=== PATIENT | female | born 1950 | race Caucasian/White ===

== ENCOUNTER → 2017-11-27 13:53 | Outpatient (CLI) | payer OTHER, SELFPAY ==
--- NOTE | 2017-11-27 14:00 | DI.US.S_ITS ---
ULTRASOUND OF RIGHT BREAST: 11/27/2017 CLINICAL: Patient returns for additional imaging over a suspected mass in the right breast. Comparison is made to exams dated: 11/27/2017 mammogram, 05/29/2017 ultrasound, and 05/29/2017 mammogram - [facility]. Color flow ultrasound of the right breast was performed. Vazquez scale images of the real-time examination were reviewed. There is a benign 7 mm cyst with a smooth internal wall in the right breast at 7 o'clock posterior depth. This cyst is anechoic. This correlates with mammography findings. Color flow imaging demonstrates that there is no vascularity present. IMPRESSION: BENIGN There is no sonographic evidence of malignancy. The 7 mm cyst in the right breast is benign. Return to annual mammogram screening schedule is recommended. This exam was interpreted at Station ID: [id number]. Electronically Signed By: Skyler madrid/carroll:11/27/2017 15:30:40 letter sent: Normal Exam Ultrasound BI-RADS: 2 Benign
--- NOTE | 2017-11-27 14:00 | DI.MG.S_ITS ---
UNILATERAL RIGHT DIGITAL DIAGNOSTIC MAMMOGRAM 3D/2D SHORT-TERM FOLLOW-UP: 11/27/2017 CLINICAL: Patient returns for a 6 month follow up of the right breast. Comparison is made to exams dated: 05/29/2017 mammogram, 10/31/2016 mammogram, 05/21/2016 mammogram, and 05/13/2016 mammogram - [facility]. There are scattered fibroglandular elements in the right breast. There is a 1.2 cm oval low density mass with a circumscribed margin in the right breast at 7 o'clock posterior depth. No other significant masses or calcifications are seen in the breast. IMPRESSION: INCOMPLETE: NEEDS ADDITIONAL IMAGING EVALUATION The 1.2 cm oval low density mass in the right breast is indeterminate. An ultrasound is recommended. This exam was interpreted at Station ID: [id number]. NOTE: For mammograms, a report in lay terms will be sent to the patient. Approximately 15% of breast malignancies will not be visualized mammographically. In the management of a palpable breast mass, a negative mammogram must not discourage biopsy of a clinically suspicious lesion. Electronically Signed By: Skyler madrid/carroll:11/27/2017 15:29:43 ACR BI-RADS Category 0: Incomplete [id number]
== END ==
PROVIDERS: PCP Family Medicine; Visit Provider Family Medicine
DX: R92.8 Other abnormal and inconclusive findings on diagnostic imaging of breast (principal)
CPT/HCPCS: 76642; 77065; G0279

== ENCOUNTER → 2017-12-28 13:54 | Outpatient (CLI) | payer OTHER, SELFPAY | PROVIDERS: PCP Family Medicine; Visit Provider Physician Assistant | DX: R30.0 Dysuria (principal) | CPT/HCPCS: 87086 ==

== ENCOUNTER → 2018-04-08 12:50 | Outpatient (CLI) | payer OTHER, SELFPAY | PROVIDERS: PCP Family Medicine; Visit Provider Physician Assistant | DX: S61.239A Puncture wound without foreign body of unspecified finger without damage to nail, initial encounter (principal) | CPT/HCPCS: 87070; 87075; 87077; 87147; 87186; 87205 ==

== ENCOUNTER → 2018-07-18 09:14 | Outpatient (CLI) | payer OTHER, SELFPAY | PROVIDERS: PCP Family Medicine; Visit Provider Physician Assistant | DX: R30.0 Dysuria (principal) | CPT/HCPCS: 87077; 87086; 87186 ==

== ENCOUNTER → 2018-08-23 11:08 | Outpatient (CLI) | payer OTHER, SELFPAY | PROVIDERS: PCP Family Medicine; Visit Provider Physician Assistant | DX: N39.0 Urinary tract infection, site not specified (principal) | CPT/HCPCS: 87077; 87086; 87186 ==

== ENCOUNTER → 2018-09-18 15:09 | Outpatient (CLI) | payer OTHER, SELFPAY ==
--- NOTE | 2018-09-18 15:11 | DI.RAD.S_ITS ---
PROCEDURE: XR CERVICAL SPINE 2V OR 3V INDICATIONS: Left neck pain TECHNIQUE: 3 view(s) of the cervical spine were acquired. COMPARISON: None. FINDINGS: Bones: No fractures or dislocations to the T1 level. The lateral masses of C1 appear intact on the odontoid view. No suspicious bony lesions. There is a moderately severe degree of degenerative disc disease at C5-6 and C6-7. No subluxation is associated. Posterior projecting osteophytes at these 2 levels may produce significant spinal stenosis. Soft tissues: No prevertebral soft tissue swelling. IMPRESSION: No trauma found. Moderately severe C5-6 and C6-7 degenerative disc disease with potential for spinal stenosis at those 2 levels. Dictated by: Julio Muir M.D. on 09/18/2018 at 15:33 Approved by: Julio Muir M.D. on 09/18/2018 at 15:34
== END ==
PROVIDERS: PCP Family Medicine; Visit Provider Nurse Practitioner
DX: M50.322 Other cervical disc degeneration at C5-C6 level (principal); M79.601 Pain in right arm; R51 Headache
CPT/HCPCS: 72040

== ENCOUNTER → 2018-10-06 10:38 | Outpatient (CLI) | payer OTHER, SELFPAY ==
--- NOTE | 2018-10-06 10:43 | DI.US.S_ITS ---
PROCEDURE: US THYROID INDICATIONS: FOLLOW-UP NODULE TECHNIQUE: Real-time scanning was performed of the thyroid gland, with image documentation. COMPARISON: Located Within [facility], US, THYROID, 07/29/2017, 15:36. FINDINGS: The thyroid is diffusely heterogeneous, with very little normal-appearing thyroid tissue seen. Right: Thyroid lobe measures 3 x 1.4 x 1.9 cm. Left: Thyroid lobe measures 3.3 x 1.3 x 1.2 cm. Isthmus: 1 mm thick. Nodule number: 1 Location: Right mid thyroid Size: 1.3 x 0.8 x 1 cm, previously measuring 1.3 x 1.0 0.9 cm. Composition: Solid Echogenicity: Hyperechoic Shape: wider than tall. Margins: Smooth Echogenic foci: None Total points: 3 ACR TI-RADS category: 3, mildly suspicious. By published criteria, no followup is recommended for a nodule of this size. IMPRESSION: There is diffusely heterogeneous, with very little normal-appearing thyroid tissue seen. Within the mid right thyroid, there is a stable 1.3 cm nodule identified. Based on published criteria, no specific imaging followup is recommended. ACR TI-RADS definitions and recommendations: TI-RADS 1 (benign): 0 points. FNA not needed. TI-RADS 2 (not suspicious): 2 points. FNA not needed. TI-RADS 3 (mildly suspicious): 3 points. * FNA if 2.5 cm or larger, follow up if 1.5 cm or larger (at 1, 3, and 5 years). TI-RADS 4 (moderately suspicious): 4-6 points. * FNA if 1.5 cm or larger, follow up if 1 cm or larger (at 1, 2, 3, and 5 years). TI-RADS 5 (highly suspicious): 7 points or more. * FNA if 1 cm or larger, follow up if 0.5 cm or larger (every year for 5 years). Dictated by: Teofilo Rodriguez M.D. on 10/06/2018 at 11:03 Approved by: Teofilo Rodriguez M.D. on 10/06/2018 at 11:05
== END ==
PROVIDERS: PCP Family Medicine; Visit Provider Family Medicine
DX: E04.1 Nontoxic single thyroid nodule (principal); E03.9 Hypothyroidism, unspecified
CPT/HCPCS: 76536

== ENCOUNTER → 2018-11-23 12:31 | Outpatient (CLI) | payer OTHER, SELFPAY ==
[2018-11-23 12:41] LABS: RBC Urine None Seen (0-5/HPF)
[2018-11-23 13:07] LABS: Add Manual Diff / Slide Review NO; Basophils Absolute Auto 0 /uL (0-100); Basophils Percent Auto 0.6 % (0-2); Eosinophils Absolute Auto 100 /uL (0-450); Eosinophils Percent Auto 1.1 % (2-4); Hematocrit 42.5 % (36-46); Hemoglobin 14.3 g/dL (12.0-16.0); Lymphocytes Absolute Auto 1900 /uL (1100-4500); Lymphocytes Percent Auto 31.5 % (25-40); Mean Corpuscular HGB Conc 33.6 % (30-36); Mean Corpuscular Volume 89.2 fL (80-100); Monocytes Absolute Auto 300 /uL (0-900); Monocytes Percent Auto 4.6 % (3-14); Neutrophils Absolute Auto 3700 /uL (1500-7000); Neutrophils Percent Auto 62.2 % (50-75); Platelet Count 252 X10^3/uL (150-400); Red Blood Cell Count 4.76 X10^6/uL (4.0-5.2); Red Cell Distribution Width 13.8 % (11.6-14.8)
[2018-11-23 13:58] LABS: Appearance Urine UA CLEAR; Bilirubin Urine UA NEGATIVE (NEGATIVE); Color Urine UA YELLOW; Glucose Urine UA NEGATIVE (Negative); Ketones Urine UA NEGATIVE (NEGATIVE); Leukocyte Esterase Urine UA 2+ (NEGATIVE); Nitrite Urine UA NEGATIVE (Negative); Occult Blood Urine UA NEGATIVE (Negative); Protein Urine UA NEGATIVE (Negative); Urobilinogen Urine UA 0.2 E.U./dL (0.2)
[2018-11-23 14:05] LABS: Alanine Aminotransferase 24 IU/L (9-52); Albumin 4.5 g/dL (3.5-5.0); Albumin Globulin Ratio 1.8 (1.0-2.8); Alkaline Phosphatase 47 U/L (38-126); Aspartate Aminotransferase 24 IU/L (14-36); BUN Creatinine Ratio 21.4 (6-22); Bilirubin Total 0.7 mg/dL (0.2-1.3); Blood Urea Nitrogen 15 mg/dL (7-17); Calcium 10.4 mg/dL (8.4-10.2); Carbon Dioxide 30 mmol/L (22-32); Chloride 102 mmol/L (98-107); Cholesterol 241 mg/dL (140-199); Estimated Glomerular Filt Rate > 60.0 mL/min (>60); Globulin 2.5 g/dL (1.7-4.1); Glucose 111 mg/dL (80-110); HDL Cholesterol 86 mg/dL (40-60); HEMOLYSIS < 15 (0-50); LDL Cholesterol Calculated 132 mg/dL (<100); Potassium 3.8 mmol/L (3.4-5.1); Sodium 140 mmol/L (137-145); Triglycerides 114 mg/dL (35-150)
[2018-11-23 14:20] LABS: Amorphous Sediment Urine 1+; Bacteria Urine Moderate (10-30); Squamous Epithelial Cell Urine 0-1 /HPF (0-5/HPF); Transitional Epi Cells Urine 0-1/HPF (0-5/HPF); WBC Urine 1-5/HPF (0-5/HPF)
[2018-11-23 14:21] LABS: Culture Indicated Urine Specimen Cultured
[2018-11-23 14:34] LABS: TSH w/ Reflex to FT4 3.42 uIU/mL (0.47-4.68)
== END ==
PROVIDERS: PCP Family Medicine; Visit Provider Family Medicine
DX: R30.0 Dysuria (principal); E03.9 Hypothyroidism, unspecified; F41.9 Anxiety disorder, unspecified; I10 Essential (primary) hypertension; Z13.220 Encounter for screening for lipoid disorders
CPT/HCPCS: 36415; 80053; 80061; 81001; 84443; 85025; 87086

== ENCOUNTER → 2018-11-29 13:49 | Outpatient (CLI) | payer OTHER, SELFPAY | PROVIDERS: PCP Family Medicine; Visit Provider Physician Assistant | DX: N89.8 Other specified noninflammatory disorders of vagina (principal) | CPT/HCPCS: 87210 ==

== ENCOUNTER → 2018-12-01 12:26 | Outpatient (CLI) | payer OTHER, SELFPAY ==
--- NOTE | 2018-12-01 | DI.US.S_ITS ---
PROCEDURE: US RENAL COMPLETE INDICATIONS: ROUTINE SCREENING/RECURRENT CYSTITIS TECHNIQUE: Real-time scanning was performed of the kidneys and bladder, with image documentation. COMPARISON: None. FINDINGS: Kidneys: Kidneys are normal in size. Right kidney measures 9.8 cm long; left kidney measures 9.8 cm long. Right renal cortical thickness is 1.1 cm; left renal cortical thickness is 0.8 cm. Renal cortical echotexture is normal. No hydronephrosis or nephrolithiasis. No suspicious solid mass lesions. Bladder: Pre-void bladder volume is 129 mL. Post-void residual is 50 mL. Pre-void images demonstrate no intraluminal masses or stones. On pre-void images, bilateral ureteral jets are noted with color Doppler interrogation. (Of note, ureteral jets may not be detectable in up to 25% of cases due to insufficient differences in specific gravity between ureteral and bladder urine). Mild asymmetric posterior bladder wall thickening measuring up to 5 mm. Miscellaneous: No free pelvic fluid. IMPRESSION: 1. Mild bilateral renal cortical thinning otherwise normal kidneys. 2. Mild focal posterior bladder wall thickening. Dictated by: Da Skinner [facility] Interpreted: Julio Muir MD on 12/01/2018 at 15:38 Approved by: Julio Muir M.D. on 12/01/2018 at 17:54
--- NOTE | 2018-12-01 12:29 | DI.MG.S_ITS ---
BILATERAL DIGITAL SCREENING MAMMOGRAM 3D/2D WITH CAD: 12/01/2018 CLINICAL: Routine screening. Comparison is made to exams dated: 05/29/2017 mammogram, 05/13/2016 mammogram, 11/27/2017 ultrasound, 11/27/2017 mammogram, 05/29/2017 ultrasound, and 05/21/2016 mammogram - [facility]. There are scattered fibroglandular elements in both breasts. Current study was also evaluated with a Computer Aided Detection (CAD) system. The previously identified oval mass in the inferior right breast at posterior depth is seen only on the RMLO view and remains stable in appearance when compared to mulitple prior mammograms dating back to 05/13/2016. No other significant masses, calcifications, or other findings are seen in either breast. IMPRESSION: There is no mammographic evidence of malignancy. Return to annual mammogram screening schedule is recommended. This exam was interpreted at Station ID: [id number]. NOTE: For mammograms, a report in lay terms will be sent to the patient. Approximately 15% of breast malignancies will not be visualized mammographically. In the management of a palpable breast mass, a negative mammogram must not discourage biopsy of a clinically suspicious lesion. Electronically Signed By: Jameel Christianson M.D. ecl/:12/04/2018 13:03:02 letter sent: Normal Exam ACR BI-RADS Category 2: Benign Finding(s) [id number]
== END ==
PROVIDERS: PCP Family Medicine; Visit Provider Urology
DX: Z12.31 Encounter for screening mammogram for malignant neoplasm of breast (principal); Z13.820 Encounter for screening for osteoporosis; M85.852 Other specified disorders of bone density and structure, left thigh; Z78.0 Asymptomatic menopausal state; N30.90 Cystitis, unspecified without hematuria; E03.9 Hypothyroidism, unspecified; Z82.62 Family history of osteoporosis
CPT/HCPCS: 76770; 77063; 77067; 77080

== ENCOUNTER → 2019-03-17 08:27 | Outpatient (CLI) | payer OTHER, SELFPAY ==
--- NOTE | 2019-03-17 | DI.RAD.S_ITS ---
PROCEDURE: XR KNEE RT 3V INDICATIONS: CONTUSION OF RT KNEE TECHNIQUE: 3 views of the knee were acquired. COMPARISON: None. FINDINGS: Bones: No acute fractures or dislocations. Mild tricompartmental osteoarthrosis. No suspicious bony lesions. Soft tissues: No substantial joint effusion. No suspicious soft tissue calcifications. IMPRESSION: Right knee without acute osseous abnormalities or malalignment. Mild tricompartmental osteoarthrosis. If there is persistent clinical concern for occult fracture given adequate mechanism of injury, consider repeat imaging in 10-14 days. Dictated by: Abdi Silva M.D. on 03/17/2019 at 9:08 Approved by: Abdi Silva M.D. on 03/17/2019 at 9:10
== END ==
PROVIDERS: PCP Internal Medicine; Visit Provider Internal Medicine
DX: S80.01XA Contusion of right knee, initial encounter (principal); M17.11 Unilateral primary osteoarthritis, right knee
CPT/HCPCS: 73562

== ENCOUNTER → 2019-08-09 08:41 | Outpatient (CLI) | payer MEDICARE, SELFPAY | PROVIDERS: PCP Internal Medicine; Visit Provider Physician Assistant | DX: R30.0 Dysuria (principal) | CPT/HCPCS: 87086 ==

== ENCOUNTER → 2020-01-05 10:05 | Outpatient (CLI) | payer MEDICARE, SELFPAY ==
[2020-01-05 12:22] LABS: Cholesterol 244 mg/dL (140-199); Glucose 109 mg/dL (80-110); HDL Cholesterol 99 mg/dL (40-60); LDL Cholesterol Calculated 130 mg/dL (<100); Triglycerides 77 mg/dL (35-150)
[2020-01-05 12:43] LABS: TSH w/ Reflex to FT4 5.78 uIU/mL (0.47-4.68)
[2020-01-05 13:27] LABS: Free T4, Direct Thyroxine 1.34 ng/dL (0.78-2.19)
== END ==
PROVIDERS: PCP Internal Medicine; Referring Provider Internal Medicine; Visit Provider Internal Medicine
DX: E78.2 Mixed hyperlipidemia (principal); E03.9 Hypothyroidism, unspecified
CPT/HCPCS: 36415; 80061; 82947; 84439; 84443

== ENCOUNTER 2020-02-03 19:39 | Emergency (ER) | payer MEDICARE, SELFPAY ==
[2020-02-03] VITALS (26 sets, daily range): BP systolic 129–185; BP diastolic 69–97; PULSE 60–78; RESP 12–62; TEMP 36.9; O2SAT 97–100; BMI 23.6
--- NOTE | 2020-02-03 19:48 | DI.RAD.S_ITS ---
PROCEDURE: XR CHEST 1V INDICATIONS: chest pain TECHNIQUE: One view of the chest was acquired. COMPARISON: [facility], , CHEST 1 VIEW, 08/02/2016, 20:29. FINDINGS: Surgical changes and devices: None. Scattered subsegmental atelectasis and/or scarring. No focal consolidation. No pleural effusions or pneumothorax. Mediastinum: Mediastinal contours appear normal. Heart size is normal. Bones and chest wall: No suspicious bony lesions. Overlying soft tissues appear unremarkable. Lateral curvature of the spine and diffuse spondylitic changes. IMPRESSION: No acute disease Dictated by: Jose Vazquez M.D. on 02/03/2020 at 20:03 Approved by: Jose Vazquez M.D. on 02/03/2020 at 20:03
--- NOTE | 2020-02-03 20:10 | ED.CHESTPAIN ---
HPI - Chest Pain General Chief Complaint: Chest Pain Stated Complaint: chest pain Time Seen by Provider: 02/03/20 20:00 Source: patient Mode of arrival: Ambulatory Limitations: no limitations History of Present Illness HPI narrative: 69F nonsmoker with history of hypothyroidism presents by herself with a chief complaint of sudden onset left-sided lower rib and chest pain that started about 3:00 p.m.. She states that it was sharp and reproducible to palpation and then spontaneously resolved only to return a few hours later. She still has a small amount of discomfort that again is reproducible to palpation. She denies any history of the same. She denies any recent injury or increased activity or overuse. She is left handed. She denies associated symptoms such as dizziness, weakness, lightheadedness, nausea, vomiting or unexplained diaphoresis. She does have a strong family history of cardiac disease. She denies runny nose, sore throat, fever or other symptoms consistent with COVID-19 MD complaint: chest pain Onset (ago): hour(s) Duration: intermittent Onset: during rest Pain location: left chest Severity: moderate Quality: heaviness and sharp Pain radiation: none Relieving factors: nothing Exacerbating factors: palpation Treatments prior to arrival chest pain: none Related Data On Oral Contraceptives: No Home Medications Medication Instructions Recorded Confirmed melatonin 3 mg tablet 3 mg PO BEDTIME PRN 11/29/18 08/09/19 Previous Rx's Medication Instructions Recorded zoster vaccine live (PF) [Zostavax 0.5 ml SQ X1 #0.5 ml 10/21/16 (PF)] benzocaine 5 %-resorcinol 2 % 1 applictn TOP BID PRN #28 gram 11/29/18 topical cream fluconazole 150 mg tablet 150 mg PO ONCE #1 tab 11/29/18 levothyroxine 50 mcg tablet 50 mcg PO QAM #30 tab 12/03/18 Allergies Allergy/AdvReac Type Severity Reaction Status Date / Time No Known Drug Allergies Allergy Verified 02/03/20 19:47 Review of Systems Constitutional Constitutional: Denies chills, Denies fatigue, Denies fever(s), Denies frequent falls, Denies lethargy and Denies weakness Eyes Eyes: Denies change in vision, Denies eye discharge, Denies irritation and Denies loss of vision ENT Ears, Nose, Mouth, and Throat: Denies change in voice, Denies dizziness, Denies neck pain, Denies sore throat and Denies throat swelling Cardiovascular Cardiovascular: Reports chest pain, Denies irregular heart rhythm, Denies lightheadedness, Denies palpitations, Denies dyspnea, Denies dyspnea on exertion and Denies orthopnea Respiratory Respiratory: Denies cough, Denies dyspnea, Denies dyspnea on exertion and Denies wheezing Gastrointestinal Gastrointestinal: Denies abdominal pain, Denies change in bowel habits, Denies diarrhea, Denies nausea and Denies vomiting Musculoskeletal Musculoskeletal: Denies neck pain and Denies numbness Integumentary/Breasts Skin/Breast: Denies pruritus, Denies erythema, Denies rash and Denies wounds Neurologic Neurologic: Denies behavioral changes, Denies confusion, Denies dizziness, Denies frequent falls, Denies loss of vision, Denies numbness and Denies weakness Psychiatric Psychiatric: Denies anxiety, Denies behavioral changes, Denies confusion, Denies depression, Denies homicidal ideation and Denies suicidal ideation Endocrine Endocrine: Denies fatigue, Denies flushing and Denies palpitations Hematologic/Lymphatic Hematologic/Lymphatic: Denies easy bruising Allergic/Immunologic Allergic/Immunologic: Denies urticaria, Denies throat swelling and Denies wheezing Patient History Medical History Anxiety (Chronic) Autism (Chronic) Chicken pox (Resolved) History of vaginal delivery (Acute) Hypertension (Chronic ~2009) Hypothyroidism (Chronic ~2016) Tinnitus (Chronic) UTI (urinary tract infection) (Acute) Surgical History Anesthesia (Resolved) History of tonsillectomy (Resolved ~1959) Family History Father Stroke Grandfather Heart disease Mother Stroke Grandfather Heart disease Grandmother Heart disease Social History Smoking Status: Never smoker Smoking Status: Never smoker Substance Use Type: does not use Exam Narrative Exam Narrative: GENERAL: [69] year old patient appears stated age. Well-nourished, well-developed patient, in mild distress. HEAD: Atraumatic. Normocephalic. EYES: Pupils equal round and reactive. Extraocular motions intact. No scleral icterus. No injection or drainage. ENT: Nose without bleeding, purulent drainage. Throat without erythema, tonsillar hypertrophy or exudate. Airway patent. NECK: Trachea midline. Non tender CARDIOVASCULAR: Regular rate and rhythm without murmurs, gallops, or rubs. RESPIRATORY: Clear to auscultation. Breath sounds equal bilaterally. No wheezes, rales, or rhonchi. GASTROINTESTINAL: Abdomen soft, non-tender, nondistended. EXTREMITIES: No edema or joint tenderness. BACK: Nontender without deformity or crepitance. No flank tenderness. NEURO: AOx3. SKIN: No rash or erythema of visible areas Initial Vital Signs Initial Vital Signs: Vital Signs Temperature 98.4 F 02/03/20 19:42 Pulse Rate 78 02/03/20 19:42 Respiratory Rate 12 02/03/20 19:42 Blood Pressure 164/79 H 02/03/20 19:42 Pulse Oximetry 99 02/03/20 19:42 Course Orders Ordered: ED Orders 02/03/20 19:48 XR chest 1V Stat EKG-12 Lead Stat 02/03/20 20:29 Complete Blood Count AUTO DIFF Stat Comprehensive Metabolic Panel Stat D Dimer Stat Lipase Stat Partial Thromboplastin Time Stat Prothrombin Time INR Stat Troponin & CK Cardiac Panel Stat 02/03/20 20:34 EKG-12 Lead Stat Discontinued Medications Acetaminophen (Tylenol) 975 mg PO NOW ONE Stop: 02/03/20 21:16 Last Admin: 02/03/20 21:19 Dose: 975 mg Documented by: CIELO Aspirin (Aspirin Chew) 324 mg PO NOW ONE Stop: 02/03/20 20:35 Last Admin: 02/03/20 20:52 Dose: 324 mg Documented by: CIELO Metoprolol Tartrate (Lopressor) 50 mg PO NOW ONE Stop: 02/03/20 21:16 Last Admin: 02/03/20 21:19 Dose: 50 mg Documented by: CIELO Nitroglycerin (Nitrostat) 0.4 mg SL [id number] PRN PRN Reason: Chest Pain Last Admin: 02/03/20 21:18 Dose: 0.4 mg Documented by: Admin: 02/03/20 21:10 Dose: 0.4 mg Documented by: Admin: 02/03/20 20:56 Dose: 0.4 mg Documented by: CIELO Reevaluation(s) Reevaluation #1: patient completely asymptomatic after NG. Repeat EKG ordered Time: 21:15 Consultations Consultation #1: [id number] - call to [facility] Hospitalist, cannot keep patient here given inability to perform stress test which she will surely need 2129 - [facility] no available beds 2130 - [place] no available beds 2133 - call to Prov. Corneliusthom justinheet. Paging [facility]BS provider. Who quickly calls back and is happy to accept Vital Signs Vital signs: Vital Signs - 8 hr 02/03/20 20:56 02/03/20 21:10 02/03/20 21:18 Pulse Rate 66 78 78 Respiratory Rate Blood Pressure 172/97 H 185/92 H 153/84 H Pulse Oximetry 02/03/20 21:31 02/03/20 21:33 02/03/20 21:35 Pulse Rate 74 69 73 Respiratory Rate 47 H 52 H 62 H Blood Pressure 157/83 H 145/82 H Pulse Oximetry 99 99 99 02/03/20 21:40 02/03/20 21:45 02/03/20 21:50 Pulse Rate 73 78 Respiratory Rate 35 H 22 Blood Pressure 161/84 H 150/82 H 152/82 H Pulse Oximetry 100 98 02/03/20 21:55 02/03/20 22:00 02/03/20 22:05 Pulse Rate 78 78 77 Respiratory Rate 17 19 25 H Blood Pressure 153/82 H 157/81 H 155/86 H Pulse Oximetry 98 99 99 02/03/20 22:10 02/03/20 22:15 02/03/20 22:20 Pulse Rate 73 66 69 Respiratory Rate 15 16 16 Blood Pressure 139/82 145/77 H 141/84 H Pulse Oximetry 99 99 98 02/03/20 22:30 02/03/20 22:31 02/03/20 22:35 Pulse Rate 65 65 64 Respiratory Rate 17 Blood Pressure 145/89 H 165/95 H Pulse Oximetry 98 98 98 02/03/20 22:40 02/03/20 22:45 02/03/20 22:50 Pulse Rate 61 64 63 Respiratory Rate 24 19 19 Blood Pressure 146/82 H 150/81 H 144/69 H Pulse Oximetry 98 98 98 02/03/20 22:55 02/03/20 23:00 02/03/20 23:05 Pulse Rate 60 61 60 Respiratory Rate 21 22 28 H Blood Pressure 131/75 129/76 129/71 Pulse Oximetry 97 98 97 02/03/20 23:06 Pulse Rate 61 Respiratory Rate 22 Blood Pressure 129/71 Pulse Oximetry 98 MDM - Chest Pain Lab Data Result diagrams: 02/03/20 20:29 02/03/20 20:29 Labs: Lab Results 02/03/20 02/03/20 02/03/20 Range/Units 20:29 20:29 20:29 WBC 6.8 (4.5-11.0) X10^3/uL RBC 4.65 (4.0-5.2) X10^6/uL Hgb 14.0 (12.0-16.0) g/dL Hct 42.1 (36-46) % MCV 90.5 (80-100) fL MCH 30.1 (26-34) PG MCHC 33.2 (30-36) % RDW 13.8 (11.6-14.8) % Plt Count 253 (150-400) X10^3/uL Neut % (Auto) 47.2 L (50-75) % Lymph % (Auto) 43.1 H (25-40) % [place] % (Auto) 7.0 (3-14) % Eos % (Auto) 1.8 L (2-4) % Baso % (Auto) 0.9 (0-2) % Neut # (Auto) 3200 (0888-5348) /uL Lymph # (Auto) 2900 (4094-7437) /uL [place] # (Auto) 500 (0-900) /uL Eos # (Auto) 100 (0-450) /uL Baso # (Auto) 100 (0-100) /uL PT 11.1 (10.1-12.7) SECONDS INR 1.0 (0.9-1.3) APTT 30 (26.4-36.2) SECONDS D-Dimer (<230) ng/mL Sodium 139 (137-145) mmol/L Potassium 4.0 (3.4-5.1) mmol/L Chloride 104 (98-107) mmol/L Carbon Dioxide 30 (22-32) mmol/L BUN 21 H (7-17) mg/dL Creatinine 0.86 (0.52-1.04) mg/dL Estimated GFR > 60.0 (>60) mL/min BUN/Creatinine Ratio 24.4 H (6-22) Glucose 105 (80-110) mg/dL Calcium 10.2 (8.4-10.2) mg/dL Total Bilirubin 0.5 (0.2-1.3) mg/dL AST 30 (14-36) IU/L ALT 18 (<35) IU/L Alkaline Phosphatase 48 (38-126) U/L Total Creatine Kinase 67 (30-135) U/L CK-MB (CK-2) TNP CK-MB (CK-2) Rel Index TNP Troponin I < 0.012 (0.01-0.034) ng/mL Total Protein 7.3 (6.3-8.2) g/dL Albumin 4.6 (3.5-5.0) g/dL Globulin 2.7 (1.7-4.1) g/dL Albumin/Globulin Ratio 1.7 (1.0-2.8) Lipase 162 (23-300) U/L 02/03/20 Range/Units 20:29 WBC (4.5-11.0) X10^3/uL RBC (4.0-5.2) X10^6/uL Hgb (12.0-16.0) g/dL Hct (36-46) % MCV (80-100) fL MCH (26-34) PG MCHC (30-36) % RDW (11.6-14.8) % Plt Count (150-400) X10^3/uL Neut % (Auto) (50-75) % Lymph % (Auto) (25-40) % [place] % (Auto) (3-14) % Eos % (Auto) (2-4) % Baso % (Auto) (0-2) % Neut # (Auto) (3041-0750) /uL Lymph # (Auto) (6757-9368) /uL [place] # (Auto) (0-900) /uL Eos # (Auto) (0-450) /uL Baso # (Auto) (0-100) /uL PT (10.1-12.7) SECONDS INR (0.9-1.3) APTT (26.4-36.2) SECONDS D-Dimer < 200 (<230) ng/mL Sodium (137-145) mmol/L Potassium (3.4-5.1) mmol/L Chloride (98-107) mmol/L Carbon Dioxide (22-32) mmol/L BUN (7-17) mg/dL Creatinine (0.52-1.04) mg/dL Estimated GFR (>60) mL/min BUN/Creatinine Ratio (6-22) Glucose (80-110) mg/dL Calcium (8.4-10.2) mg/dL Total Bilirubin (0.2-1.3) mg/dL AST (14-36) IU/L ALT (<35) IU/L Alkaline Phosphatase (38-126) U/L Total Creatine Kinase (30-135) U/L CK-MB (CK-2) CK-MB (CK-2) Rel Index Troponin I (0.01-0.034) ng/mL Total Protein (6.3-8.2) g/dL Albumin (3.5-5.0) g/dL Globulin (1.7-4.1) g/dL Albumin/Globulin Ratio (1.0-2.8) Lipase (23-300) U/L ECG Data Attestation: I personally reviewed and interpreted this ECG as follows: Interpretation: Normal sinus rhythm with a rate of 69. No ectopy. No ST elevations. QRS 93. ST depressions noted in septal leads Discharge Plan Departure Patient Disposition: General Acute Hospital Clinical Impression: Chest pain Qualifiers: Chest pain type: unspecified Qualified Code(s): R07.9 - Chest pain, unspecified Discharge Date/Time: 02/03/20 23:21 Prescriptions: No Action levothyroxine 50 mcg tablet 50 mcg PO QAM Qty: 30 RF: 0 melatonin 3 mg tablet 3 mg PO BEDTIME PRNRF: 0 fluconazole 150 mg tablet 150 mg PO ONCE Qty: 1 RF: 0 Vagisil 5-2 % cream 1 applictn TOP BID PRN (Reason: skin irritation) Qty: 28 RF: 0 zoster vaccine live (PF) [Zostavax (PF)] 19,400 UNIT/0.65 ML suspension for reconstitution 0.5 ml SQ X1 Qty: 0.5 RF: 0 Referrals: Gerber Avelar MD [Primary Care Provider] -
[2020-02-03 20:36] LABS: Add Manual Diff / Slide Review NO; Basophils Absolute Auto 100 /uL (0-100); Basophils Percent Auto 0.9 % (0-2); Eosinophils Absolute Auto 100 /uL (0-450); Eosinophils Percent Auto 1.8 % (2-4); Hematocrit 42.1 % (36-46); Lymphocytes Absolute Auto 2900 /uL (1100-4500); Lymphocytes Percent Auto 43.1 % (25-40); Mean Corpuscular HGB Conc 33.2 % (30-36); Mean Corpuscular Hemoglobin 30.1 PG (26-34); Mean Corpuscular Volume 90.5 fL (80-100); Monocytes Absolute Auto 500 /uL (0-900); Neutrophils Absolute Auto 3200 /uL (1500-7000); Neutrophils Percent Auto 47.2 % (50-75); Platelet Count 253 X10^3/uL (150-400); Red Blood Cell Count 4.65 X10^6/uL (4.0-5.2); Red Cell Distribution Width 13.8 % (11.6-14.8); White Blood Cell Count 6.8 X10^3/uL (4.5-11.0)
[2020-02-03 20:43] LABS: Prothrombin Time 11.1 SECONDS (10.1-12.7)
[2020-02-03 20:46] LABS: PTT Partial Thromboplastin Tim 30 SECONDS (26.4-36.2)
[2020-02-03 20:50] LABS: Alanine Aminotransferase 18 IU/L (<35); Albumin 4.6 g/dL (3.5-5.0); Albumin Globulin Ratio 1.7 (1.0-2.8); Alkaline Phosphatase 48 U/L (38-126); Aspartate Aminotransferase 30 IU/L (14-36); BUN Creatinine Ratio 24.4 (6-22); Bilirubin Total 0.5 mg/dL (0.2-1.3); Blood Urea Nitrogen 21 mg/dL (7-17); Calcium 10.2 mg/dL (8.4-10.2); Carbon Dioxide 30 mmol/L (22-32); Chloride 104 mmol/L (98-107); Creatine Kinase 67 U/L (30-135); Estimated Glomerular Filt Rate > 60.0 mL/min (>60); Globulin 2.7 g/dL (1.7-4.1); Glucose 105 mg/dL (80-110); HEMOLYSIS < 15 (0-50); Lipase 162 U/L (23-300); Sodium 139 mmol/L (137-145); Total Protein 7.3 g/dL (6.3-8.2)
[2020-02-03] MEDS: ASPIRIN 81 MG CHEW TAB 324 MG PO (20:52)
[2020-02-03] MEDS: NITROGLYCERIN 0.4 MG SL TAB SL ×3 (20:56→21:18)
[2020-02-03 21:00] LABS: D Dimer < 200 ng/mL (<230)
[2020-02-03 21:01] LABS: Troponin I < 0.012 ng/mL (0.01-0.034)
[2020-02-03] MEDS: ACETAMINOPHEN 325 MG TABLET 975 MG PO (21:19)
[2020-02-03] MEDS: METOPROLOL IR 25 MG TABLET 50 MG PO (21:19)
== END 2020-02-03 23:21 | disposition short-term general hospital (02) ==
PROVIDERS: Emergency Provider Emergency Medicine; PCP Internal Medicine
DX: R07.9 Chest pain, unspecified (principal); R07.81 Pleurodynia; E03.9 Hypothyroidism, unspecified
CPT/HCPCS: 36415; 71045; 80053; 82550; 83690; 84484; 85025; 85379; 85610; 85730; 93005; 99284

== ENCOUNTER → 2020-02-21 09:04 | Outpatient (CLI) | payer MEDICARE, SELFPAY ==
--- NOTE | 2020-02-21 | DI.US.S_ITS ---
PROCEDURE: US RENAL COMPLETE INDICATIONS: CHRONIC CYSTITIS; HEMATURIA TECHNIQUE: Real-time scanning was performed of the kidneys and bladder, with image documentation. COMPARISON: [facility], , RENAL COMPLETE, 12/01/2018, 13:09. FINDINGS: Kidneys: Kidneys are normal in size. Right kidney measures 11 cm long; left kidney measures 11.5 cm long. Right renal cortical thickness is 1.7 cm; left renal cortical thickness is 1.2 cm. Renal cortical echotexture is normal. No hydronephrosis or nephrolithiasis. No suspicious solid mass lesions. Bladder: Pre-void bladder volume is 516 mL. Post-void residual is 313 mL. Pre-void images demonstrate no intraluminal masses or stones. On pre-void images, both ureteral jets are noted with color Doppler interrogation. (Of note, ureteral jets may not be detectable in up to 25% of cases due to insufficient differences in specific gravity between ureteral and bladder urine). Miscellaneous: No free pelvic fluid. IMPRESSION: Large postvoid residual, 313 cc. No hydronephrosis is seen. No focal kidney abnormality can be seen by ultrasound. Dictated by: Teofilo Rodriguez M.D. on 02/21/2020 at 9:45 Approved by: Teofilo Rodriguez M.D. on 02/21/2020 at 9:47
--- NOTE | 2020-02-21 | DI.RAD.S_ITS ---
PROCEDURE: XR KUB INDICATIONS: chronic cystitis with hematuria Hypothyroidism TECHNIQUE: One view of the abdomen acquired. COMPARISON: [facility], , US RENAL COMPLETE, 02/21/2020, 9:37. FINDINGS: Surgical changes and devices: None. Bowel: Bowel gas pattern is nonobstructive however there is a large amount of diffuse stool seen.. There is 8 mm calcification projecting in the right kidney however this could be within bowel. Further evaluation with CT KUB could be performed as clinically warranted. Of note this was not visualized on the recent ultrasound from 02/21/20. Levocurvature of the spine and diffuse discogenic changes. IMPRESSION: Large amount of diffuse stool suggestive of fecal impaction/retention. Calcific density projecting the region of the right kidney. Please see discussion above tear Dictated by: Jose Vazquez M.D. on 02/21/2020 at 11:21 Approved by: Jose Vazquez M.D. on 02/21/2020 at 11:25
--- NOTE | 2020-02-21 | DI.US.S_ITS ---
PROCEDURE: US THYROID INDICATIONS: HYPOTHYROIDISM TECHNIQUE: Real-time scanning was performed of the thyroid gland, with image documentation. COMPARISON: [facility], [place], US THYROID, 10/06/2018, 10:51. [facility], [place], US RENAL COMPLETE, 02/21/2020, 9:37. [facility], [place], THYROID, 07/29/2017, 15:36. FINDINGS: Right: Thyroid lobe measures 2.9 x 1.3 x 1.6 cm. Left: Thyroid lobe measures 2.4 x 1.1 x 0.9 cm, and is diffusely heterogeneous. Isthmus: 1-2 mm thick. Nodule number: 1 Location: Right inferior thyroid Size: 1.3 x 0.8 x 1 cm, previously measuring 1.3 x 0.8 x 1 cm. Composition: Solid Echogenicity: Hyperechoic Shape: wider than tall. Margins: Smooth Echogenic foci: None Total points: 3 ACR TI-RADS category: 3 IMPRESSION: There is a stable 1.3 cm right thyroid nodule seen. By published criteria, no specific imaging follow-up is recommended. ACR TI-RADS definitions and recommendations: TI-RADS 1 (benign): 0 points. FNA not needed. TI-RADS 2 (not suspicious): 2 points. FNA not needed. TI-RADS 3 (mildly suspicious): 3 points. * FNA if 2.5 cm or larger, follow up if 1.5 cm or larger (at 1, 3, and 5 years). TI-RADS 4 (moderately suspicious): 4-6 points. * FNA if 1.5 cm or larger, follow up if 1 cm or larger (at 1, 2, 3, and 5 years). TI-RADS 5 (highly suspicious): 7 points or more. * FNA if 1 cm or larger, follow up if 0.5 cm or larger (every year for 5 years). Dictated by: Teofilo Rodriguez M.D. on 02/21/2020 at 9:47 Approved by: Teofilo Rodriguez M.D. on 02/21/2020 at 9:50
== END ==
PROVIDERS: PCP Internal Medicine; Referring Provider Internal Medicine; Visit Provider Internal Medicine
DX: N30.21 Other chronic cystitis with hematuria (principal); N20.0 Calculus of kidney; E03.9 Hypothyroidism, unspecified; E04.1 Nontoxic single thyroid nodule
CPT/HCPCS: 74018; 76536; 76770

== ENCOUNTER → 2020-03-05 11:41 | Outpatient (CLI) | payer MEDICARE, SELFPAY ==
[2020-03-06 14:21] LABS: COVID19 Sendout Not Detected (Not Detect)
== END ==
PROVIDERS: PCP Internal Medicine; Visit Provider Nurse Practitioner
DX: Z11.59 Encounter for screening for other viral diseases (principal)
CPT/HCPCS: 87635

== ENCOUNTER 2020-03-08 10:27 | Day surgery (SDC) | payer MEDICARE, SELFPAY ==
[2020-03-08] VITALS (7 sets, daily range): BP systolic 122–161; BP diastolic 82–93; PULSE 73–93; RESP 12–20; TEMP 36.5–37.1; O2SAT 98–100; BMI 23.6
[2020-03-08] MEDS: SODIUM CHLORIDE 0.9% 1,000 ML 84 ML IV (11:18)
--- NOTE | 2020-03-08 12:49 | PM.HP.1 ---
History of Present Illness History of Present Illness Date Patient Seen: 03/08/20 Time Patient Seen: 12:49 Chief complaint: SCREENING COLONOSCOPY Narrative: Screening colonoscopy Patient History Medical History (Updated 02/18/20 @ 00:00 by ) Anxiety (Chronic) Autism (Chronic) Chicken pox (Resolved) History of vaginal delivery (Acute) Hypertension (Chronic ~2009) Hypothyroidism (Chronic ~2015) Tinnitus (Chronic) UTI (urinary tract infection) (Acute) Surgical History Anesthesia (Resolved) History of tonsillectomy (Resolved ~1959) Family & Social History Family History Father Stroke Grandfather Heart disease Mother Stroke Grandfather Heart disease Grandmother Heart disease Social History: household members spouse Tobacco & Substance use: Smoking Status Never smoker alcohol intake former Substance Use Type does not use Meds Home Medications and Allergies Home Medications Medication Instructions Recorded Confirmed Type cranberry extract [Ellura] 200 mg PO DAILY 03/08/20 03/08/20 History levothyroxine 50 mcg PO QAM 03/08/20 03/08/20 History melatonin 1 mg PO BEDTIME PRN 03/08/20 03/08/20 History nitrofurantoin monohyd/m-cryst 1 mg PO DAILY PRN 03/08/20 03/08/20 History [Macrobid] Allergies Allergy/AdvReac Type Severity Reaction Status Date / Time No Known Drug Allergies Allergy Verified 02/03/20 19:47 Exam Vital Signs (past 8 hours): - 03/08/20 11:01 Temperature 98.1 F Pulse Rate 82 Respiratory Rate 12 Blood Pressure 161/92 H Pulse Oximetry 100 Oxygen Delivery Method Room Air Narrative Exam Narrative: Oropharynx free of lesions chest: On auscultation percussion line Cardiac exam reveals no S3 or murmur Assessment & Plan Assessment & Plan narrative: Need for screening colonoscopy. Risks, benefits, alternatives have been explained.
[2020-03-08] MEDS: fentaNYL 250 MCG/5 ML INJ IV (12:50)
--- NOTE | 2020-03-08 12:50 | PM.OP.ENDO ---
Operative Date/Time/Diagnoses Date of procedure: 03/08/20 Time of procedure: 12:51 Pre-op diagnosis: See indication and findings Procedure & Clinicians Study performed: Colonoscopy Same procedure as scheduled: Yes Indications: Screening Surgeon: Justina Burton Procedure Notes Procedure in detail: After informed consent was obtained the patient was placed in left lateral decubitus position. The video colonoscope was introduced the rectum slowly advanced cecum. On slow withdrawal mucosa was carefully examined. The scope was removed. The patient tolerated procedure well. Blood loss none Complications none Sedation Total sedation time 22 minutes Versed 7 mg fentanyl 150 micro g IV titration Findings 1. Scattered diverticula in the left and sigmoid colon. In addition the entire colon was extremely tortuous and long. 2. Otherwise negative colonoscopy to cecum Patient should have follow-up colonoscopy in 10 years.
[2020-03-08] MEDS: MIDAZOLAM 5 MG/5 ML VIAL IV (12:51)
--- NOTE | 2020-03-08 14:30 | SUR.PHASEII ---
IV removed without issue, catheter tip intact.
== END 2020-03-08 14:26 | disposition home or self-care (01) ==
LOC: ENDO 10:30
PROVIDERS: PCP Internal Medicine; Referring Provider Internal Medicine; Visit Provider Internal Medicine Gastroenterology
PROC: 0DJD8ZZ Inspection of Lower Intestinal Tract, Via Natural or Artificial Opening Endoscopic (ICD-10-PCS; CPT 45378; principal; 2020-03-08 12:30)
DX: Z12.11 Encounter for screening for malignant neoplasm of colon (principal); F41.9 Anxiety disorder, unspecified; F84.0 Autistic disorder; I10 Essential (primary) hypertension; E03.9 Hypothyroidism, unspecified; K57.30 Diverticulosis of large intestine without perforation or abscess without bleeding
CPT/HCPCS: G0121; J2250; J3010

== ENCOUNTER → 2020-04-26 14:39 | Outpatient (CLI) | payer MEDICARE, SELFPAY ==
--- NOTE | 2020-04-26 | DI.US.S_ITS ---
PROCEDURE: US PELVIC COMPLETE INDICATIONS: conditions associated with female genital organs. Reported left adnexal mass on prior CT. TECHNIQUE: Real-time scanning was performed of the pelvic organs, with image documentation. Additional endovaginal scanning was necessary due to incomplete visualization of the adnexal and endometrial structures by transabdominal scanning. COMPARISON: Outside Facility, [facility], CT [facility], 04/11/2020, 14:00. FINDINGS: Transabdominal scanning: Limited scanning through the kidneys shows no hydronephrosis. No pathologic free abdominal or pelvic fluid. Endovaginal scanning: Uterus: Uterus is normal in size at 8.1 x 3.4 x 4.1 cm. The endometrium measures 7-8 mm in combined thickness. There is heterogeneous appearance and multifocal cystic areas. Ovaries: Right ovary measures 3.9 x 1.9 x 2.3 cm. Multiple right ovarian cysts are seen measuring up to 2.4 x 1.7 x 2.2 cm. Left ovary is not well seen however there is a large complex left adnexal cystic mass with hyperechoic foci and multi septated appearance. Overall this measures 5.9 x 5.9 x 8.0 cm IMPRESSION: Large complex cystic left adnexal lesion, which is suspicious for ovarian neoplasm. Recommend gynecological oncologic consultation and laparoscopic evaluation. This is concordant with the comparison CT appearance. Dictated by: Jose Vazquez M.D. on 04/27/2020 at 16:19 Approved by: Jose Vazquez M.D. on 04/27/2020 at 16:23
[2020-04-26 16:48] LABS: Calcium 10.4 mg/dL (8.4-10.2)
== END ==
PROVIDERS: PCP Internal Medicine; Referring Provider Internal Medicine; Visit Provider Urology
DX: N94.89 Other specified conditions associated with female genital organs and menstrual cycle (principal)
CPT/HCPCS: 36415; 76856; 82310

== ENCOUNTER → 2020-04-29 12:06 | Outpatient (CLI) | payer MEDICARE, SELFPAY | PROVIDERS: PCP Internal Medicine; Visit Provider Physician Assistant | DX: R30.0 Dysuria (principal) | CPT/HCPCS: 87086 ==

== ENCOUNTER → 2020-05-02 16:41 | Outpatient (CLI) | payer MEDICARE, SELFPAY ==
--- NOTE | 2020-05-02 16:43 | DI.MG.S_ITS ---
BILATERAL DIGITAL SCREENING MAMMOGRAM 3D/2D WITH CAD: 05/02/2020 CLINICAL: Routine screening. Comparison is made to exams dated: 12/01/2018 mammogram, 05/29/2017 mammogram, and 05/13/2016 mammogram - [facility]. There are scattered fibroglandular elements in both breasts. Current study was also evaluated with a Computer Aided Detection (CAD) system. No significant masses, calcifications, or other findings are seen in either breast. There has been no significant interval change. IMPRESSION: NEGATIVE There is no mammographic evidence of malignancy. A 1 year screening mammogram is recommended. This exam was interpreted at Station ID: [id number]. NOTE: For mammograms, a report in lay terms will be sent to the patient. Approximately 15% of breast malignancies will not be visualized mammographically. In the management of a palpable breast mass, a negative mammogram must not discourage biopsy of a clinically suspicious lesion. Electronically Signed By: Albert esquivel/carroll:05/02/2020 17:18:08 letter sent: Normal Exam ACR BI-RADS Category 1: Negative [id number]
== END ==
PROVIDERS: PCP Internal Medicine; Referring Provider Internal Medicine; Visit Provider Internal Medicine
DX: Z12.31 Encounter for screening mammogram for malignant neoplasm of breast (principal)
CPT/HCPCS: 77063; 77067

== ENCOUNTER → 2020-05-05 09:39 | Outpatient (CLI) | payer MEDICARE, SELFPAY ==
[2020-05-05 12:05] LABS: Cancer Antigen 125 11.8 U/mL (0-35)
== END ==
PROVIDERS: PCP Internal Medicine; Referring Provider Obstetrics & Gynecology Gynecologic Oncology; Visit Provider Obstetrics & Gynecology Gynecologic Oncology
DX: R19.00 Intra-abdominal and pelvic swelling, mass and lump, unspecified site (principal)
CPT/HCPCS: 36415; 86304

== ENCOUNTER → 2020-08-07 12:40 | Outpatient (CLI) | payer OTHER, SELFPAY ==
[2020-08-07 13:09] LABS: COVID19 -Nasal RAPID Negative (Negative)
== END ==
PROVIDERS: PCP Internal Medicine; Visit Provider Physician Assistant
DX: Z20.822 Contact with and (suspected) exposure to COVID-19 (principal)
CPT/HCPCS: 87635

== ENCOUNTER → 2020-11-16 10:47 | Outpatient (CLI) | payer OTHER, SELFPAY ==
[2020-11-16 12:09] LABS: COVID19 -Nasal RAPID Negative (Negative)
== END ==
PROVIDERS: Referring Provider Specialist; Visit Provider Specialist
DX: Z01.812 Encounter for preprocedural laboratory examination (principal); Z20.822 Contact with and (suspected) exposure to COVID-19
CPT/HCPCS: 87635

== ENCOUNTER 2020-11-17 07:46 | Day surgery (SDC) | payer OTHER, SELFPAY ==
[2020-11-13 09:22] VITALS: BMI 25.5
[2020-11-17] MEDS: LACTATED RINGERS 1,000 ML 42 ML IV (08:00)
[2020-11-17 08:10] VITALS: PULSE 85; RESP 18; TEMP 36.6; O2SAT 97; BMI 25.5
--- NOTE | 2020-11-17 08:23 | PM.PREOP ---
Pre-operative Note COVID-19 COVID-19 status: Negative Result date/Date tested (Pos, Neg/Pending): 11/16/20 Interval Note History & Physical reviewed/Exam performed by Physician: Yes Changes to H&P: No
[2020-11-17] MEDS: LACTATED RINGERS 1,000 ML 100 ML IV (08:27)
--- NOTE | 2020-11-17 08:36 | SUR.OPER ---
Lithotomy on padded OR bed, head on pillow, arms secured on padded arm boards at <90 degrees abduction. Legs secured in padded yellow fins stirrups.
[2020-11-17] MEDS: CEFAZOLIN 2 GM/100 ML FROZ.PIGGY IV (08:45)
[2020-11-17] MEDS: BUPIVACAINE 0.5% W/ EPI (PF) 30 ML VIAL INJ (09:01)
[2020-11-17 10:06] VITALS: BP 139/86; PULSE 90; RESP 14; TEMP 36.5; O2SAT 98
[2020-11-17 10:11] VITALS: BP 147/86; PULSE 99; RESP 14; O2SAT 99
[2020-11-17 10:16] VITALS: BP 149/85; PULSE 98; RESP 17; O2SAT 98
[2020-11-17 10:21] VITALS: BP 147/86; PULSE 90; RESP 12; TEMP 36.4; O2SAT 97
--- NOTE | 2020-11-17 10:21 | PM.OP.1 ---
Operative Date/Time/Diagnoses Date of procedure: 11/17/20 Time of procedure: 10:21 Pre-op diagnosis: Vaginal wall prolapse post hysterectomy Post-op diagnosis: same Procedure & Clinicians Procedure: Colpocleisis Same procedure as scheduled: Yes Indications: Symptomatic vaginal wall prolapse Surgeon: Mikaela Malik Click Yes if Unassisted: Yes Anesthesia Type: General Operative Notes Findings: Significant enterocele Closure Type: primary Specimen(s): none sent Estimated Blood Loss (mL): 30 Blood products transfused: none Procedure in detail: Patient was brought to the operating room where she was in a supine position in [facility] and underwent a general anesthetic. She was prepped and draped in the usual sterile fashion. Her bladder was drained. Antibiotics were in prior to beginning of the case. Warming was in place. Pulsatile stockings were in place. A wedge-shaped tissue was taken out of the posterior fourchette with a scalpel. Area on anterior and posterior wall of the prolapse were injected with a solution of half percent Marcaine with epinephrine. The skin was incised with a scalpel and undermined with and removed removed with Metzenbaum scissors. The patient had a short anterior vaginal wall and a large enterocele. During removal of the skin the enterocele sac was entered, there was no damage to internal structures. The enterocele sac was reduced with pursestring suture of 2-0 Vicryl suture in 3 different layers. Plication sutures of 0 Vicryl were used to support the enterocele repair. 2-0 Vicryl suture was used in an interrupted fashion to close anterior to posterior wall. The perineal body was built up with plication sutures of 0 Vicryl followed by 2 0 Vicryl suture. Skin was closed with 2 0 Vicryl suture. Counts of instruments and sponges were correct. Patient went to recovery room in good condition. Complications: none Post-operative Condition: stable Disposition: same day surgery Plan for aftercare: Home when awake and stable.
[2020-11-17 10:23] VITALS: BP 165/90; PULSE 88; RESP 12; TEMP 36.5; O2SAT 98
--- NOTE | 2020-11-17 10:33 | SUR.PHASEI ---
1006 - Received to PACU after general anesthesia. Airway patent, self maintained. Report from Dr Flood and circulating RN.
== END 2020-11-17 10:40 | disposition home or self-care (01) ==
PROVIDERS: Referring Provider Internal Medicine; Visit Provider Specialist
PROC: (CPT 57120; principal; 2020-11-17 08:45)
DX: N99.3 Prolapse of vaginal vault after hysterectomy (principal); E03.9 Hypothyroidism, unspecified
CPT/HCPCS: 57120; J0690; J1100; J1885; J2250; J2405; J2704; J3010

== ENCOUNTER 2021-03-26 14:07 | Observation (INO) | payer OTHER, SELFPAY ==
[2021-03-26] VITALS (85 sets, daily range): BP systolic 97–148; BP diastolic 58–117; PULSE 88–192; RESP 11–57; TEMP 36.5–36.8; O2SAT 95–100; BMI 25.3; BMI 24.8
--- NOTE | 2021-03-26 14:11 | DI.RAD.S_ITS ---
PROCEDURE: XR CHEST 1V INDICATIONS: chest pain TECHNIQUE: One view of the chest was acquired. COMPARISON: [facility], , XR CHEST 1V, 02/03/2020, 19:39. [facility], , CHEST 1 VIEW, 08/02/2016, 20:29. FINDINGS: Surgical changes and devices: None. Lungs and pleura: Lungs are clear. No pleural effusions or pneumothorax. Mediastinum: Mediastinal contours appear unchanged. Heart size is within normal limits. Bones and chest wall: No suspicious bony lesions. Overlying soft tissues appear unremarkable. IMPRESSION: No acute cardiopulmonary abnormality. Dictated by: Mendez Garcia M.D. on 03/26/2021 at 13:30 Approved by: Mendez Garcia M.D. on 03/26/2021 at 13:31
[2021-03-26 14:29] LABS: Add Manual Diff / Slide Review NO; Basophils Absolute Auto 0 /uL (0-100); Basophils Percent Auto 0.5 % (0-2); Eosinophils Absolute Auto 100 /uL (0-450); Eosinophils Percent Auto 1.3 % (2-4); Hematocrit 44.3 % (36-46); Hemoglobin 14.9 g/dL (12.0-16.0); Lymphocytes Absolute Auto 3700 /uL (1100-4500); Lymphocytes Percent Auto 44.8 % (25-40); Mean Corpuscular HGB Conc 33.7 % (30-36); Mean Corpuscular Hemoglobin 29.9 PG (26-34); Mean Corpuscular Volume 88.7 fL (80-100); Monocytes Absolute Auto 500 /uL (0-900); Monocytes Percent Auto 6.4 % (3-14); Neutrophils Absolute Auto 3900 /uL (1500-7000); Platelet Count 257 X10^3/uL (150-400); Red Cell Distribution Width 14.7 % (11.6-14.8); White Blood Cell Count 8.3 X10^3/uL (4.5-11.0)
[2021-03-26 14:40] LABS: Alanine Aminotransferase 18 IU/L (<35); Albumin 4.8 g/dL (3.5-5.0); Albumin Globulin Ratio 1.6 (1.0-2.8); Alkaline Phosphatase 58 U/L (38-126); Aspartate Aminotransferase 30 IU/L (14-36); BUN Creatinine Ratio 27.1 (6-22); Bilirubin Total 0.7 mg/dL (0.2-1.3); Blood Urea Nitrogen 19 mg/dL (7-17); Calcium 10.1 mg/dL (8.4-10.2); Carbon Dioxide 28 mmol/L (22-32); Chloride 104 mmol/L (98-107); Creatine Kinase 98 U/L (30-135); Estimated Glomerular Filt Rate > 60.0 mL/min (>60); Glucose 110 mg/dL (80-110); HEMOLYSIS < 15 (0-50); Lipase 161 U/L (23-300); Magnesium 2.2 mg/dL (1.6-2.3); Potassium 3.4 mmol/L (3.4-5.1); Sodium 140 mmol/L (137-145); Total Protein 7.8 g/dL (6.3-8.2)
--- NOTE | 2021-03-26 14:44 | PC.NURSE ---
Woke from a nap with palpitations and rapid heart rate. Reports feeling generally unwell today. Had diverticulitis in january completed course of ABX, states she has been unwell since.
--- NOTE | 2021-03-26 14:49 | ED.ARRPALP ---
HPI - Arrhythmia/Palpitations General Chief Complaint: Arrhythmia/Palpitations Stated Complaint: high pulse rate Time Seen by Provider: 03/26/21 14:39 Source: patient Mode of arrival: Ambulatory Limitations: no limitations History of Present Illness HPI narrative: Patient complains of generalized weakness with palpitations. Monitor and EKG seen, atrial fibrillation with RVR. Rate 147. Patient has no history arrhythmia or heart problems. Patient went for a nap at 1:20 p.m. this afternoon. Awoke with feeling weak and palpitations. Recently on antibiotics including Cipro and Flagyl in the last month for diverticulitis. Patient states she was on ivermectin for prophylaxis for COVID. Related Data Home Medications Medication Instructions Recorded Confirmed levothyroxine 50 mcg tablet 50 mcg PO QAM 03/08/20 11/17/20 melatonin 1 mg tablet 6 mg PO BEDTIME PRN 03/08/20 11/16/20 Allergies Allergy/AdvReac Type Severity Reaction Status Date / Time No Known Drug Allergies Allergy Verified 03/26/21 14:16 Review of Systems Review of Systems Narrative: GENERAL: Denies chills, complains fatigue, malaise, denies fever, sweats. HEENT: Denies sinus pain, ear pain, sore throat RESPIRATORY: Denies dyspnea, cough CARDIOVASCULAR: Denies chest pain, complains of palpitations GASTROINTESTINAL: Denies nausea, vomiting, abdominal pain : Denies dysuria, frequency, hematuria MUSCULOSKELETAL: denies muscle or bony pain SKIN: Denies rash, skin lesions NEUROLOGIC: Denies weakness, numbness ROS Unobtainable: All systems reviewed & are unremarkable except as noted in HPI and below Patient History Medical History (Updated 03/26/21 @ 15:02 by Terrell Bernard MD) Anxiety Autism Chicken pox History of vaginal delivery Hypertension (~2009) Hypothyroidism (~2015) Tinnitus UTI (urinary tract infection) Surgical History (Updated 11/13/20 @ 09:43 by Daniella Ramos RN) Anesthesia History of surgery History of tonsillectomy (~1960) Family History Father Stroke Grandfather Heart disease Mother Stroke Grandfather Heart disease Grandmother Heart disease Social History household members: spouse Smoking Status: Never smoker alcohol intake: former Smoking Status: Never smoker Substance Use Type: does not use Exam Narrative Exam Narrative: GENERAL: in no distress, not toxic not dyspneic HEAD: Normocephalic. EYES: Pupils equal round No scleral icterus. No injection no discharge ENT: Mucous membranes moist. NECK: Trachea midline. CARDIOVASCULAR: Tachycardic with irregular irregular rhythm without murmurs RESPIRATORY: Clear to auscultation. Breath sounds equal bilaterally. No wheezes, rales, or rhonchi. GASTROINTESTINAL: Abdomen soft, non-tender EXTREMITIES: No gross deformities. BACK: No flank tenderness. NEURO: AOx4. SKIN: Warm and dry PSYCH: Not anxious, is cooperative Initial Vital Signs Initial Vital Signs: Vital Signs Temperature 98.2 F 03/26/21 14:10 Pulse Rate 151 H 03/26/21 14:10 Respiratory Rate 15 03/26/21 14:10 Blood Pressure 131/89 03/26/21 14:10 Pulse Oximetry 98 03/26/21 14:10 Procedures Cardioversion Time of Cardioversion: 05:00 Consent Signed: Yes Indication: Atrial fibrillation Stability: Stable Number of attempts (shocks): 3 Joules used: 50, 100 and 150 Cardiac rhythm post-cardioversion: Remains in atrial fibrillation with RVR Procedural Sedation Time of procedure: 04:55 Consent signed: Yes Time out performed: Yes Indication: cardioversion ASA Class: I Mallampati Airway Classification: Class I Time of Last PO Intake: 17:39 Preparation: cardiac/vascular sonographer applied, pulse oximeter, capnometry used, supplemental O2 applied, reversal agents at bedside, suction/airway equipment at bedside and IV secured IV Etomidate dose (mg): 10 Intraservice time/total sedation time (min): 20 ED Sedation Level: Deep Patient Tolerated Procedure: Well and No complications Complications: none Course Course Course Narrative: 5:15 p.m.. Unsuccessful attempt for cardioversion. Patient tolerated very well otherwise. Had appropriate sedation. Patient does not remember event. There was no adverse events. Decision to Admit Date: 03/26/21 Decision to Admit time: 17:36 Orders Ordered: ED Orders 03/26/21 14:11 XR chest 1V Stat EKG-12 Lead Stat 03/26/21 14:15 Complete Blood Count AUTO DIFF Stat Comprehensive Metabolic Panel Stat Free T4, Direct Thyroxine Stat Lipase Stat MAG [Magnesium] Stat NT-proBNP (BNP-Adult 18+) Stat TSH w/ Reflex to FT4 Stat Troponin & CK Cardiac Panel Stat 03/26/21 15:50 COVID19 -Nasal swab/Pre-Proc Stat 03/26/21 16:14 Urine Microscopic Stat 03/26/21 18:05 COVID19 - ADMIT ([employer] swab/PCR) Stat Diltiazem HCl 125 mg/ Sodium (Chloride) 125 mls @ 5 mls/hr IV TITRATE DOMINIQUE; Protocol Last Titration: 03/26/21 17:47 Dose: 10 mg/hr, 10 mls/hr Documented by: Admin: 03/26/21 17:36 Dose: 5 mg/hr, 5 mls/hr Documented by: CIELO Discontinued Medications Apixaban (Apixaban 5 Mg Tablet) 5 mg PO NOW ONE Stop: 03/26/21 15:15 Last Admin: 03/26/21 15:48 Dose: 5 mg Documented by: CIELO Diltiazem HCl (Diltiazem 5 Mg/Ml Sdv) 10 mg IV NOW ONE Stop: 03/26/21 17:21 Last Admin: 03/26/21 17:35 Dose: 10 mg Documented by: CIELO Etomidate (Etomidate 2 Mg/Ml 10 Ml Vial) 22 mg 0.3 mg/kg (22 mg) IV NOW ONE Stop: 03/26/21 16:51 Last Admin: 03/26/21 17:05 Dose: 10 mg Documented by: CIELO Reevaluation(s) Reevaluation #1: Spoke with patient and understands for admission for rate control and echocardiogram Time: 17:36 Consultations Consultation #1: Spoke with cardiology, Dr Sarmiento, patient has low heart risk factors. He calculated risk factors as well as reviewed laboratory studies. Give patient Eliquis 5 mg now, electrocardioversion 1 hour later. If successful then patient can go home on Eliquis 5 mg twice a day with metoprolol succinate 25 mg daily. Consultation #2: Spoke with Dr. johnson, cardiology on-call. Recommends admission with Cardizem drip. Echocardiogram in the morning. Continue Eliquis. Time: 17:36 Consultation #3: s/w dr emery, will admit, medications reviewed suggested by Cardiology. Echocardiogram tomorrow. TSH likely not related to new onset atrial fibrillation Time: 17:59 Vital Signs Vital signs: Vital Signs - 8 hr 03/26/21 14:10 03/26/21 14:11 03/26/21 14:12 Temperature 98.2 F Pulse Rate 151 H 142 H 129 H Respiratory Rate 15 Blood Pressure 131/89 131/89 Pulse Oximetry 98 95 98 03/26/21 14:30 03/26/21 14:31 03/26/21 15:00 Temperature Pulse Rate 162 H 163 H 163 H Respiratory Rate 15 19 17 Blood Pressure 130/92 H 120/59 L Pulse Oximetry 100 96 100 03/26/21 15:17 03/26/21 15:24 03/26/21 15:26 Temperature Pulse Rate 165 H 155 H 158 H Respiratory Rate 24 18 14 Blood Pressure 143/83 H Pulse Oximetry 100 99 100 03/26/21 15:28 03/26/21 15:30 03/26/21 15:32 Temperature Pulse Rate 162 H 164 H 163 H Respiratory Rate 23 22 14 Blood Pressure 115/82 Pulse Oximetry 100 99 97 03/26/21 15:34 03/26/21 15:36 03/26/21 15:38 Temperature Pulse Rate 162 H 162 H 165 H Respiratory Rate 19 15 16 Blood Pressure Pulse Oximetry 99 100 100 03/26/21 15:40 03/26/21 15:42 03/26/21 15:44 Temperature Pulse Rate 163 H 164 H 161 H Respiratory Rate 18 17 18 Blood Pressure Pulse Oximetry 100 99 99 03/26/21 15:46 03/26/21 15:48 03/26/21 15:50 Temperature Pulse Rate 162 H 164 H 170 H Respiratory Rate 19 25 H 17 Blood Pressure Pulse Oximetry 100 99 100 03/26/21 15:52 03/26/21 15:54 03/26/21 15:56 Temperature Pulse Rate 167 H 168 H 166 H Respiratory Rate 27 H 25 H 19 Blood Pressure Pulse Oximetry 98 98 99 03/26/21 15:58 03/26/21 16:00 03/26/21 16:02 Temperature Pulse Rate 164 H 168 H 190 H Respiratory Rate 36 H 16 57 H Blood Pressure 111/82 Pulse Oximetry 98 03/26/21 16:04 03/26/21 16:06 03/26/21 16:08 Temperature Pulse Rate 178 H 160 H 156 H Respiratory Rate 45 H 19 22 Blood Pressure Pulse Oximetry 98 100 100 03/26/21 16:10 03/26/21 16:12 03/26/21 16:14 Temperature Pulse Rate 158 H 156 H 155 H Respiratory Rate 18 21 27 H Blood Pressure Pulse Oximetry 99 99 99 03/26/21 16:16 03/26/21 16:18 03/26/21 16:20 Temperature Pulse Rate 158 H 164 H 163 H Respiratory Rate 25 H 23 19 Blood Pressure Pulse Oximetry 99 100 99 03/26/21 16:22 03/26/21 16:24 03/26/21 16:26 Temperature Pulse Rate 160 H 159 H 164 H Respiratory Rate 19 19 23 Blood Pressure Pulse Oximetry 99 99 99 03/26/21 16:28 03/26/21 16:30 03/26/21 16:32 Temperature Pulse Rate 169 H 163 H 161 H Respiratory Rate 20 17 19 Blood Pressure 97/65 Pulse Oximetry 100 98 99 03/26/21 16:34 03/26/21 16:36 03/26/21 16:38 Temperature Pulse Rate 162 H 157 H 162 H Respiratory Rate 19 24 23 Blood Pressure Pulse Oximetry 98 98 98 03/26/21 16:40 03/26/21 16:42 03/26/21 16:44 Temperature Pulse Rate 166 H 165 H 167 H Respiratory Rate 22 23 22 Blood Pressure Pulse Oximetry 100 99 99 03/26/21 16:46 03/26/21 16:48 03/26/21 16:50 Temperature Pulse Rate 188 H 133 H 192 H Respiratory Rate 44 H 16 51 H Blood Pressure Pulse Oximetry 99 03/26/21 16:52 03/26/21 16:54 03/26/21 16:56 Temperature Pulse Rate 190 H 171 H 160 H Respiratory Rate 39 H 34 H 21 Blood Pressure Pulse Oximetry 96 99 99 03/26/21 17:18 03/26/21 17:35 03/26/21 17:36 Temperature Pulse Rate 168 H 154 H 148 H Respiratory Rate 16 Blood Pressure 138/117 H 118/77 118/77 Pulse Oximetry 98 MDM - Arrhythmia/Palpitations Differential Diagnosis Differential diagnosis: Likely artial fibrillation and artial flutter Lab Data Result diagrams: 03/26/21 14:15 03/26/21 14:15 Labs: Lab Results 03/26/21 03/26/21 03/26/21 Range/Units 14:15 14:15 14:15 WBC 8.3 (4.5-11.0) X10^3/uL RBC 5.00 (4.0-5.2) X10^6/uL Hgb 14.9 (12.0-16.0) g/dL Hct 44.3 (36-46) % MCV 88.7 (80-100) fL MCH 29.9 (26-34) PG MCHC 33.7 (30-36) % RDW 14.7 (11.6-14.8) % Plt Count 257 (150-400) X10^3/uL Neut % (Auto) 47.0 L (50-75) % Lymph % (Auto) 44.8 H (25-40) % [place] % (Auto) 6.4 (3-14) % Eos % (Auto) 1.3 L (2-4) % Baso % (Auto) 0.5 (0-2) % Neut # (Auto) 3900 (6255-7906) /uL Lymph # (Auto) 3700 (0237-5207) /uL [place] # (Auto) 500 (0-900) /uL Eos # (Auto) 100 (0-450) /uL Baso # (Auto) 0 (0-100) /uL Sodium 140 (137-145) mmol/L Potassium 3.4 (3.4-5.1) mmol/L Chloride 104 (98-107) mmol/L Carbon Dioxide 28 (22-32) mmol/L BUN 19 H (7-17) mg/dL Creatinine 0.70 (0.52-1.04) mg/dL Estimated GFR > 60.0 (>60) mL/min BUN/Creatinine Ratio 27.1 H (6-22) Glucose 110 (80-110) mg/dL Calcium 10.1 (8.4-10.2) mg/dL Magnesium 2.2 (1.6-2.3) mg/dL Total Bilirubin 0.7 (0.2-1.3) mg/dL AST 30 (14-36) IU/L ALT 18 (<35) IU/L Alkaline Phosphatase 58 (38-126) U/L Total Creatine Kinase 98 (30-135) U/L CK-MB (CK-2) TNP CK-MB (CK-2) Rel Index TNP Troponin I < 0.012 (0.01-0.034) ng/mL NT-Pro-B Natriuret Pep 58 (<125) pg/mL Total Protein 7.8 (6.3-8.2) g/dL Albumin 4.8 (3.5-5.0) g/dL Globulin 3.0 (1.7-4.1) g/dL Albumin/Globulin Ratio 1.6 (1.0-2.8) Lipase 161 (23-300) U/L TSH 9.88 H (0.47-4.68) uIU/mL Free T4 0.85 (0.78-2.19) ng/dL SARS-CoV-2 (PCR) (Negative) 03/26/21 Range/Units 15:50 WBC (4.5-11.0) X10^3/uL RBC (4.0-5.2) X10^6/uL Hgb (12.0-16.0) g/dL Hct (36-46) % MCV (80-100) fL MCH (26-34) PG MCHC (30-36) % RDW (11.6-14.8) % Plt Count (150-400) X10^3/uL Neut % (Auto) (50-75) % Lymph % (Auto) (25-40) % [place] % (Auto) (3-14) % Eos % (Auto) (2-4) % Baso % (Auto) (0-2) % Neut # (Auto) (3983-7415) /uL Lymph # (Auto) (2930-7045) /uL [place] # (Auto) (0-900) /uL Eos # (Auto) (0-450) /uL Baso # (Auto) (0-100) /uL Sodium (137-145) mmol/L Potassium (3.4-5.1) mmol/L Chloride (98-107) mmol/L Carbon Dioxide (22-32) mmol/L BUN (7-17) mg/dL Creatinine (0.52-1.04) mg/dL Estimated GFR (>60) mL/min BUN/Creatinine Ratio (6-22) Glucose (80-110) mg/dL Calcium (8.4-10.2) mg/dL Magnesium (1.6-2.3) mg/dL Total Bilirubin (0.2-1.3) mg/dL AST (14-36) IU/L ALT (<35) IU/L Alkaline Phosphatase (38-126) U/L Total Creatine Kinase (30-135) U/L CK-MB (CK-2) CK-MB (CK-2) Rel Index Troponin I (0.01-0.034) ng/mL NT-Pro-B Natriuret Pep (<125) pg/mL Total Protein (6.3-8.2) g/dL Albumin (3.5-5.0) g/dL Globulin (1.7-4.1) g/dL Albumin/Globulin Ratio (1.0-2.8) Lipase (23-300) U/L TSH (0.47-4.68) uIU/mL Free T4 (0.78-2.19) ng/dL SARS-CoV-2 (PCR) Negative (Negative) Point of Care Testing Test Results Not applicable Urine Dip Bedside Urine Glucose Negative Bedside Urine Bilirubin - Negative Bedside Urine Ketone - Negative Urine Specific [place] 1.010 Bedside Urine Occult Blood - Negative Bedside Urine pH 6.0 Bedside Urine Protein - Negative Bedside Urine Urobilinogen +/- 1mg Bedside Urine Nitrite - Negative Bedside Urine Leukocytes + 70 Esterase ECG Data Interpretation: Atrial fibrillation with RVR rate 147 MDM Narrative Medical decision making narrative: Appropriate for admission. Patient will need rate control with ICU/admit/Cardizem drip. Critical Care Time Critical Care Time Attestation: Critical Care Time 35 minutes: Critical care time is separate from other billable procedures. This critical care time includes consultation with family and other consulting doctors, review of records, and interpretation of data from labs, EKGs, imaging, etc. Discharge Plan Departure Patient Disposition: Admitted as Observation Clinical Impression: Atrial fibrillation, new onset Admit Date/Time: 03/26/21 17:51 Admit Provider: Mustapha Emery
[2021-03-26 14:51] LABS: NT-proBNP (BNP-Adult 18+) 58 pg/mL (<125); Troponin I < 0.012 ng/mL (0.01-0.034)
[2021-03-26 15:20] LABS: TSH w/ Reflex to FT4 9.88 uIU/mL (0.47-4.68)
[2021-03-26] MEDS: APIXABAN 5 MG TABLET PO (15:48)
[2021-03-26 16:15] LABS: Bacteria Urine None Seen
[2021-03-26 16:18] LABS: COVID19 -Nasal RAPID Negative (Negative)
[2021-03-26] MEDS: ETOMIDATE 2 MG/ML 10 ML VIAL 22 MG IV (17:05)
[2021-03-26] MEDS: dilTIAZem 5 MG/ML SDV 10 MG IV (17:35)
[2021-03-26] MEDS: dilTIAZem 125 MG in SODIUM CHLORIDE 0.9% 100 ML IV (17:36)
[2021-03-26 17:44] LABS: Free T4, Direct Thyroxine 0.85 ng/dL (0.78-2.19)
[2021-03-26] MEDS: dilTIAZem 125 MG in DEXTROSE 5 % IN WATER 100 ML 20 ML IV (19:00)
--- NOTE | 2021-03-26 19:40 | PC.ADMIT ---
Frantz Viveros [email or web address] Admission Note: The patient,Darline Alfaro,71 y/o, was given written information regarding hospital policies, unit procedures and contact persons. Patient's smoking status: Never smoker. Vital Signs - 8 hr 03/26/21 14:10 03/26/21 14:11 03/26/21 14:12 Temperature 98.2 F Pulse Rate 151 H 142 H 129 H Respiratory Rate 15 Blood Pressure 131/89 131/89 Pulse Oximetry 98 95 98 03/26/21 14:30 03/26/21 14:31 03/26/21 15:00 Temperature Pulse Rate 162 H 163 H 163 H Respiratory Rate 15 19 17 Blood Pressure 130/92 H 120/59 L Pulse Oximetry 100 96 100 03/26/21 15:17 03/26/21 15:24 03/26/21 15:26 Temperature Pulse Rate 165 H 155 H 158 H Respiratory Rate 24 18 14 Blood Pressure 143/83 H Pulse Oximetry 100 99 100 03/26/21 15:28 03/26/21 15:30 03/26/21 15:32 Temperature Pulse Rate 162 H 164 H 163 H Respiratory Rate 23 22 14 Blood Pressure 115/82 Pulse Oximetry 100 99 97 03/26/21 15:34 03/26/21 15:36 03/26/21 15:38 Temperature Pulse Rate 162 H 162 H 165 H Respiratory Rate 19 15 16 Blood Pressure Pulse Oximetry 99 100 100 03/26/21 15:40 03/26/21 15:42 03/26/21 15:44 Temperature Pulse Rate 163 H 164 H 161 H Respiratory Rate 18 17 18 Blood Pressure Pulse Oximetry 100 99 99 03/26/21 15:46 03/26/21 15:48 03/26/21 15:50 Temperature Pulse Rate 162 H 164 H 170 H Respiratory Rate 19 25 H 17 Blood Pressure Pulse Oximetry 100 99 100 03/26/21 15:52 03/26/21 15:54 03/26/21 15:56 Temperature Pulse Rate 167 H 168 H 166 H Respiratory Rate 27 H 25 H 19 Blood Pressure Pulse Oximetry 98 98 99 03/26/21 15:58 03/26/21 16:00 03/26/21 16:02 Temperature Pulse Rate 164 H 168 H 190 H Respiratory Rate 36 H 16 57 H Blood Pressure 111/82 Pulse Oximetry 98 09/13/21 16:04 03/26/21 16:06 03/26/21 16:08 Temperature Pulse Rate 178 H 160 H 156 H Respiratory Rate 45 H 19 22 Blood Pressure Pulse Oximetry 98 100 100 03/26/21 16:10 03/26/21 16:12 03/26/21 16:14 Temperature Pulse Rate 158 H 156 H 155 H Respiratory Rate 18 21 27 H Blood Pressure Pulse Oximetry 99 99 99 03/26/21 16:16 03/26/21 16:18 03/26/21 16:20 Temperature Pulse Rate 158 H 164 H 163 H Respiratory Rate 25 H 23 19 Blood Pressure Pulse Oximetry 99 100 99 03/26/21 16:22 03/26/21 16:24 03/26/21 16:26 Temperature Pulse Rate 160 H 159 H 164 H Respiratory Rate 19 19 23 Blood Pressure Pulse Oximetry 99 99 99 03/26/21 16:28 03/26/21 16:30 03/26/21 16:32 Temperature Pulse Rate 169 H 163 H 161 H Respiratory Rate 20 17 19 Blood Pressure 97/65 Pulse Oximetry 100 98 99 03/26/21 16:34 03/26/21 16:36 03/26/21 16:38 Temperature Pulse Rate 162 H 157 H 162 H Respiratory Rate 19 24 23 Blood Pressure Pulse Oximetry 98 98 98 03/26/21 16:40 03/26/21 16:42 03/26/21 16:44 Temperature Pulse Rate 166 H 165 H 167 H Respiratory Rate 22 23 22 Blood Pressure Pulse Oximetry 100 99 99 03/26/21 16:46 03/26/21 16:48 03/26/21 16:50 Temperature Pulse Rate 188 H 133 H 192 H Respiratory Rate 44 H 16 51 H Blood Pressure Pulse Oximetry 99 03/26/21 16:52 03/26/21 16:54 03/26/21 16:56 Temperature Pulse Rate 190 H 171 H 160 H Respiratory Rate 39 H 34 H 21 Blood Pressure Pulse Oximetry 96 99 99 03/26/21 17:00 03/26/21 17:02 03/26/21 17:04 Temperature Pulse Rate 160 H 159 H 154 H Respiratory Rate 18 19 13 Blood Pressure 113/59 L 112/82 114/88 Pulse Oximetry 99 99 99 03/26/21 17:06 03/26/21 17:10 03/26/21 17:15 Temperature Pulse Rate 162 H 159 H 156 H Respiratory Rate 18 26 H 20 Blood Pressure 103/88 145/99 H 130/96 H Pulse Oximetry 99 96 98 03/26/21 17:18 03/26/21 17:20 03/26/21 17:30 Temperature Pulse Rate 168 H 163 H 151 H Respiratory Rate 16 15 17 Blood Pressure 138/117 H 139/117 H 118/77 Pulse Oximetry 98 98 98 03/26/21 17:35 03/26/21 17:36 03/26/21 17:47 Temperature Pulse Rate 154 H 148 H 149 H Respiratory Rate 24 Blood Pressure 118/77 118/77 148/82 H Pulse Oximetry 98 03/26/21 18:00 03/26/21 18:11 03/26/21 18:13 Temperature Pulse Rate 127 H 160 H Respiratory Rate 21 50 H Blood Pressure 119/81 121/87 Pulse Oximetry 96 03/26/21 18:15 03/26/21 18:25 03/26/21 18:30 Temperature Pulse Rate 144 H 137 H Respiratory Rate 19 27 H Blood Pressure 116/58 L 141/97 H Pulse Oximetry 98 98 03/26/21 18:50 03/26/21 19:00 Temperature Pulse Rate 155 H 145 H Respiratory Rate 22 15 Blood Pressure 118/85 123/97 H Pulse Oximetry 99 97 Patient admitted 1820 from ED to hospitalists care for afib RVR. Patient is ambulatory, A/Ox4, no complaints of chest pain or other pain. Patient's HR in 150's, dilt drip at 10ml/hr. BP WNL. RA. Patient oriented to room and call light system, able to make needs known. Titrated drip up to 15ml/hr and then 20ml/hr per order by Dr. Emery. Patient having sustained runs of Vtach but completely asymptomatic, reported to MD. At shift change HR 100-110 at rest.
--- NOTE | 2021-03-26 19:42 | PM.HP.1 ---
History of Present Illness History of Present Illness Date Patient Seen: 03/26/21 Time Patient Seen: 19:43 Chief complaint: high pulse rate Narrative: Patient is a 71-year-old female Darline Alfaro who presented to the ED complaining of generalized weakness with palpitations.?Patient was found to have atrial fibrillation with RVR.? Rate 147 on EKG/ tele.? Patient has no history arrhythmia or heart problems.? Patient went for a nap at 1:20 p.m. this afternoon.? Awoke with feeling weakness and palpitations.? Recently on antibiotics including Cipro and Flagyl in the last month for diverticulitis.? Cardioversion was attempted x3 in the ED without success. Patient verbalized to the ED that she had taken ivermectin for prophylaxis for COVID, although advised the ICU-tele legal advisor that she had stocked up on ivermectin but had not started the medication at this time. Patient reports that she has never had an episode like this prior she finished her Cipro and Flagyl approximately 10 days ago due to diverticulitis in which she has had 2 episodes in the last several months. Patient noted that she has been under increased stress in the last few weeks. Admit interview patient was extremely anxious and agitated regarding questions, discussion, and education provided to her about the COVID-19 vaccine. She was angry, agitated, and demonstrated a heart rate in the 160s while she was verbalizing her out rage and anger. Patient also suffers from white coat hypertension as well. I attempted to assure the patient that this Education and information gathering was in the promotion of her health and well-being and that we would respect her wishes and no longer discuss the COVID-19 vaccine with her. The patient also demanded that she have another nurse. That she felt the nurse's discussions with her regarding the vaccine were I felt threatened by him, I refuse to let him in here again, I do not feel safe, and his presence is contributing to my fast heart rate. I continued to advise her that the staff is providing her this medical Education, appropriately and in accordance with medical standards and guidelines, for the benefit of a patient's health. The patient did eventually calmed down and her heart rate slowed to the 80s. Currently patient denies chest pain, shortness of breath, abdominal pain, nausea, vomiting, diarrhea, chills, headache, changes in vision, numbness, tingling, weakness, recent injury illness or trauma. Patient denies cardiac history, pulmonary Hx, PE, or DVT. patient education was provided regarding atrial fibrillation and the management plan for her while she was hospitalized. Patient's vitals upon admit temp 98.2?, BP 123/97, HR tachycardic 145, R 15, O2 saturation 97% on room air. Patient's CBC, chemistry, liver panel, troponin, BNP were all within normal limits. Patient's chest x-ray demonstrated new no acute cardiopulmonary processes. Patient's EKG demonstrated atrial fibrillation with RVR. Patient was placed on a Cardizem drip in the ED after 3 failed cardioversions. Patient did have an elevated TSH at 9.88 she currently takes 50 mcg q.day, free T4 was WNL. Patient to be admitted for atrial fibrillation with RVR. Patient requests that no one discuss the COVID-19 vaccination and or COVID 19 virus with her at any time. Patient History Medical History (Updated 03/27/21 @ 01:41 by KHUSHI Berkowitz-UYEN) Anxiety Autism Chicken pox History of diverticulitis History of vaginal delivery Hypertension (~2009) Hypothyroidism (~2015) Tinnitus UTI (urinary tract infection) Surgical History Anesthesia History of surgery History of tonsillectomy (~1960) Family & Social History Family History Father Stroke Grandfather Heart disease Mother Stroke Grandfather Heart disease Grandmother Heart disease Social History: household members spouse Prior Living Arrangements House Safety & Behavioral: Feels Safe in Current Yes Environment Been Physically Hurt or No Threatened By a Person Suicidal Ideation Description None Tobacco & Substance use: Smoking Status Never smoker alcohol intake former ETOH abuse -Sober for several years Substance Use Type does not use Meds Home Medications and Allergies Home Medications Medication Instructions Recorded Confirmed Type levothyroxine 50 mcg tablet 50 mcg PO QAM 03/08/20 03/26/21 History melatonin 1 mg tablet 6 mg PO BEDTIME PRN 03/08/20 03/26/21 History magnesium citrate 100 mg capsule 400 mg PO QID 03/26/21 03/26/21 History Allergies Allergy/AdvReac Type Severity Reaction Status Date / Time No Known Drug Allergies Allergy Verified 03/26/21 14:16 Review of Systems Review of Systems Narrative: All 12 point systems reviewed with the patient and are negative except otherwise documented. Exam Vital Signs (past 8 hours): - 03/26/21 14:10 03/26/21 14:11 03/26/21 14:12 Temperature 98.2 F Pulse Rate 151 H 142 H 129 H Respiratory Rate 15 Blood Pressure 131/89 131/89 Pulse Oximetry 98 95 98 03/26/21 14:30 03/26/21 14:31 03/26/21 15:00 Temperature Pulse Rate 162 H 163 H 163 H Respiratory Rate 15 19 17 Blood Pressure 130/92 H 120/59 L Pulse Oximetry 100 96 100 03/26/21 15:17 03/26/21 15:24 03/26/21 15:26 Temperature Pulse Rate 165 H 155 H 158 H Respiratory Rate 24 18 14 Blood Pressure 143/83 H Pulse Oximetry 100 99 100 03/26/21 15:28 03/26/21 15:30 03/26/21 15:32 Temperature Pulse Rate 162 H 164 H 163 H Respiratory Rate 23 22 14 Blood Pressure 115/82 Pulse Oximetry 100 99 97 03/26/21 15:34 03/26/21 15:36 03/26/21 15:38 Temperature Pulse Rate 162 H 162 H 165 H Respiratory Rate 19 15 16 Blood Pressure Pulse Oximetry 99 100 100 03/26/21 15:40 03/26/21 15:42 03/26/21 15:44 Temperature Pulse Rate 163 H 164 H 161 H Respiratory Rate 18 17 18 Blood Pressure Pulse Oximetry 100 99 99 03/26/21 15:46 03/26/21 15:48 03/26/21 15:50 Temperature Pulse Rate 162 H 164 H 170 H Respiratory Rate 19 25 H 17 Blood Pressure Pulse Oximetry 100 99 100 03/26/21 15:52 03/26/21 15:54 03/26/21 15:56 Temperature Pulse Rate 167 H 168 H 166 H Respiratory Rate 27 H 25 H 19 Blood Pressure Pulse Oximetry 98 98 99 03/26/21 15:58 03/26/21 16:00 03/26/21 16:02 Temperature Pulse Rate 164 H 168 H 190 H Respiratory Rate 36 H 16 57 H Blood Pressure 111/82 Pulse Oximetry 98 03/26/21 16:04 03/26/21 16:06 03/26/21 16:08 Temperature Pulse Rate 178 H 160 H 156 H Respiratory Rate 45 H 19 22 Blood Pressure Pulse Oximetry 98 100 100 03/26/21 16:10 03/26/21 16:12 03/26/21 16:14 Temperature Pulse Rate 158 H 156 H 155 H Respiratory Rate 18 21 27 H Blood Pressure Pulse Oximetry 99 99 99 03/26/21 16:16 03/26/21 16:18 03/26/21 16:20 Temperature Pulse Rate 158 H 164 H 163 H Respiratory Rate 25 H 23 19 Blood Pressure Pulse Oximetry 99 100 99 03/26/21 16:22 03/26/21 16:24 03/26/21 16:26 Temperature Pulse Rate 160 H 159 H 164 H Respiratory Rate 19 19 23 Blood Pressure Pulse Oximetry 99 99 99 03/26/21 16:28 03/26/21 16:30 03/26/21 16:32 Temperature Pulse Rate 169 H 163 H 161 H Respiratory Rate 20 17 19 Blood Pressure 97/65 Pulse Oximetry 100 98 99 03/26/21 16:34 03/26/21 16:36 03/26/21 16:38 Temperature Pulse Rate 162 H 157 H 162 H Respiratory Rate 19 24 23 Blood Pressure Pulse Oximetry 98 98 98 03/26/21 16:40 03/26/21 16:42 03/26/21 16:44 Temperature Pulse Rate 166 H 165 H 167 H Respiratory Rate 22 23 22 Blood Pressure Pulse Oximetry 100 99 99 03/26/21 16:46 03/26/21 16:48 03/26/21 16:50 Temperature Pulse Rate 188 H 133 H 192 H Respiratory Rate 44 H 16 51 H Blood Pressure Pulse Oximetry 99 03/26/21 16:52 03/26/21 16:54 03/26/21 16:56 Temperature Pulse Rate 190 H 171 H 160 H Respiratory Rate 39 H 34 H 21 Blood Pressure Pulse Oximetry 96 99 99 03/26/21 17:00 03/26/21 17:02 03/26/21 17:04 Temperature Pulse Rate 160 H 159 H 154 H Respiratory Rate 18 19 13 Blood Pressure 113/59 L 112/82 114/88 Pulse Oximetry 99 99 99 03/26/21 17:06 03/26/21 17:10 03/26/21 17:15 Temperature Pulse Rate 162 H 159 H 156 H Respiratory Rate 18 26 H 20 Blood Pressure 103/88 145/99 H 130/96 H Pulse Oximetry 99 96 98 03/26/21 17:18 03/26/21 17:20 03/26/21 17:30 Temperature Pulse Rate 168 H 163 H 151 H Respiratory Rate 16 15 17 Blood Pressure 138/117 H 139/117 H 118/77 Pulse Oximetry 98 98 98 03/26/21 17:35 03/26/21 17:36 03/26/21 17:47 Temperature Pulse Rate 154 H 148 H 149 H Respiratory Rate 24 Blood Pressure 118/77 118/77 148/82 H Pulse Oximetry 98 03/26/21 18:00 03/26/21 18:11 03/26/21 18:13 Temperature Pulse Rate 127 H 160 H Respiratory Rate 21 50 H Blood Pressure 119/81 121/87 Pulse Oximetry 96 03/26/21 18:15 03/26/21 18:25 03/26/21 18:30 Temperature Pulse Rate 144 H 137 H Respiratory Rate 19 27 H Blood Pressure 116/58 L 141/97 H Pulse Oximetry 98 98 03/26/21 18:50 03/26/21 19:00 Temperature Pulse Rate 155 H 145 H Respiratory Rate 22 15 Blood Pressure 118/85 123/97 H Pulse Oximetry 99 97 Oxygen Delivery Method Room Air Narrative Exam Narrative: General: Patient is a well-developed, well-nourished fit female, who appears younger that stated age, aggitated, angry, severely anxious female in severe distress at this time, though physiologically asymptomatic and stable. HEENT: Normocephalic, atraumatic, extraocular muscles intact, oral pharynx is clear and mucous membranes are moist. Neck is supple and symmetric, trachea is midline, Negative for JVD Chest: Normal AP diameter and contour without kyphoscoliosis, no nasal flaring, retractions, or tachypneic labored Lungs: Auscultation of all lung waterman are clear without adventitious sounds, wheezes, rhonchi, or rales. Cardio: S1 & S2 with regular rate and rhythm without murmur, rubs, or gallops, no carotid bruit, no cardiac pulsations present. Abdomen: Soft nontender, negative for organomegaly, or masses. Bowel sounds are present in all 4 quadrants without guarding or rebound, no CVA tenderness. Musculoskeletal: Muscle strength and tone are appear equal within normal limits, no deformity, crepitus, effusions, cyanosis, clubbing or edema present. Skin: intact without rashes, ulcerations or petechiae. Neuro: Alert and orientated x3, no gross deficits noted of cranial nerves. Psych: Patient has a well-kept appearance, anxious, agitated, hyper vigilant, mental status attitude thought context and judgment are exaggerated, paranoid like in nature, responses are disproportionate to stimuli. Objective Labs Result Diagrams: 03/26/21 14:15 03/26/21 14:15 Labs: Laboratory Results - last 24 hr 03/26/21 03/26/21 03/26/21 14:15 14:15 14:15 WBC 8.3 RBC 5.00 Hgb 14.9 Hct 44.3 MCV 88.7 MCH 29.9 MCHC 33.7 RDW 14.7 Plt Count 257 Neut % (Auto) 47.0 L Lymph % (Auto) 44.8 H [place] % (Auto) 6.4 Eos % (Auto) 1.3 L Baso % (Auto) 0.5 Neut # (Auto) 3900 Lymph # (Auto) 3700 [place] # (Auto) 500 Eos # (Auto) 100 Baso # (Auto) 0 Sodium 140 Potassium 3.4 Chloride 104 Carbon Dioxide 28 BUN 19 H Creatinine 0.70 Estimated GFR > 60.0 BUN/Creatinine Ratio 27.1 H Glucose 110 Calcium 10.1 Magnesium 2.2 Total Bilirubin 0.7 AST 30 ALT 18 Alkaline Phosphatase 58 Total Creatine Kinase 98 CK-MB (CK-2) TNP CK-MB (CK-2) Rel Index TNP Troponin I < 0.012 NT-Pro-B Natriuret Pep 58 Total Protein 7.8 Albumin 4.8 Globulin 3.0 Albumin/Globulin Ratio 1.6 Lipase 161 TSH 9.88 H Free T4 0.85 Urine RBC Urine WBC Ur Squamous Epith Cells Ur Transition Epith Cell Ur Renal Epithelial Cell Calcium Oxalate Crystal Uric Acid Crystals Triple Phos Crystals Other Crystals Amorphous Sediment Urine Bacteria Hyaline Casts Granular Casts RBC Casts WBC Casts Other Casts Urine Mucus Urine Trichomonas Urine Yeast Urine Sperm Ur Culture Indicated? Micro UA Comment SARS-CoV-2 (PCR) 03/26/21 03/26/21 15:50 16:14 WBC RBC Hgb Hct MCV MCH MCHC RDW Plt Count Neut % (Auto) Lymph % (Auto) [place] % (Auto) Eos % (Auto) Baso % (Auto) Neut # (Auto) Lymph # (Auto) [place] # (Auto) Eos # (Auto) Baso # (Auto) Sodium Potassium Chloride Carbon Dioxide BUN Creatinine Estimated GFR BUN/Creatinine Ratio Glucose Calcium Magnesium Total Bilirubin AST ALT Alkaline Phosphatase Total Creatine Kinase CK-MB (CK-2) CK-MB (CK-2) Rel Index Troponin I NT-Pro-B Natriuret Pep Total Protein Albumin Globulin Albumin/Globulin Ratio Lipase TSH Free T4 Urine RBC Cancelled Urine WBC Cancelled Ur Squamous Epith Cells Cancelled Ur Transition Epith Cell Cancelled Ur Renal Epithelial Cell Cancelled Calcium Oxalate Crystal Cancelled Uric Acid Crystals Cancelled Triple Phos Crystals Cancelled Other Crystals Cancelled Amorphous Sediment Cancelled Urine Bacteria Cancelled Hyaline Casts Cancelled Granular Casts Cancelled RBC Casts Cancelled WBC Casts Cancelled Other Casts Cancelled Urine Mucus Cancelled Urine Trichomonas Cancelled Urine Yeast Cancelled Urine Sperm Cancelled Ur Culture Indicated? Cancelled Micro UA Comment Cancelled SARS-CoV-2 (PCR) Negative Assessment & Plan Assessment & Plan narrative: Patient is a 71-year-old female Darline Alfaro with a medical history of anxiety, white coat hypertension, diverticulitis, Asperger's autism, and hypothyroidism that presented to the ED with weakness fatigue and elevated heart rate. Patient admitted foratrial fibrillation with RVR in rates between 140-180, who failed cardioversion x3 in the ED, requires IV Cardizem in attempt to medically cardioverted the patient and/or rate control. Patient requests that no one discuss the COVID-19 vaccination and or COVID 19 virus with her at any time. 1. Atrial fibrillation with RVR, acute new onset, in the setting of severe anxiety secondary Asperger's autism, acute on chronic, present on admission-stable -I have concerns regarding if the patient had taken the ivermectin as a tachycardia is a side effect, in the setting of the increase of complications and poison Control calls related to this drug. Patient is stable denies symptoms at this time and in no distress. -initial admit vitals BP 123/97, heart rate 145 in AFib -patient placed on Cardizem drip per protocol -telemedicine consult: -Cardizem 30 mg p.o. q.6 hours-Dr. Venegas advised that the combination of starting PO can hasten the time the patient is on the drip. -echocardiogram ordered for tomorrow -patient placed on Eliquis 5 mg b.i.d. -patient education provided regarding all medications interventions and diagnostics during her stay. -initial troponin<0.012, will trend x3 -patient admitted to ICU on telemedicine -patient will require outpatient cardiology follow-up. 2. Anxiety, severe, secondary to Asperger's autism, acute on chronic, present on admission -patient's heart rate directly correlated with the level of her anxiety-recommend upon discharge follow-up with PCP or mental health to assist her in the management of her anxiety and stress, as these left uncontrolled are likely to lead to more severe health outcomes. -patient's anxiety upon admit 04/22, patient requested Xanax but due to the risk of interaction with Cardizem prescribed Ativan as needed for anxiety -also changed her nurse-per her request. 3. Hypothyroidism, acute on chronic, present on admission-uncontrolled -patient's initial TSH level 9.88, free T4 WNL -continued patient's levothyroxine but increase the dose from 50 mcg to 75 mcg -patient education provided regarding medication dosage change and to follow-up with her PCP outpatient for a recheck of her thyroid level in 6 weeks to evaluate dosage. -patient verbalized understanding and agreed to plan of care. Code status: Full code COVID PCR: Negative COVID vaccination: Unvaccinated possible I have remain active in use: Patient has extreme anxiety regarding any discussion of COVID-it is to be avoided at all times. VTE/DVT prophylaxis: Patient on Eliquis 5 mg b.i.d. and SCDs Disposition: Patient's expected length of stay less than 2 midnights. I have utilized all available immediate resources to obtain, update, or review the patient's current medications. I confirmed that the patient's advanced care plan is present, Code status is documented and/or surrogate decision maker is listed in the patient's medical record. Time Spent With Patient Critical Care time: I spent a total of [] minutes of critical care time on this patient's care today; this time is exclusive of procedural time. Scores GCS [place] coma scale eye opening: Spontaneous [place] coma scale verbal response: Orientated [place] coma scale motor response: Obey commands [place] coma scale total score: 15 Wells' Criteria for PE Clinical signs and symptoms of DVT: No PE is #1 Dx or equally likely: No Heart rate > 100: Yes Immobilization at least 3 days or surg in previous 4 weeks: No History of PE or DVT: No Hemoptysis: No Malignancy w/Treatment within 6 months or palliative: No Wells' PE Score total: 1.5
--- NOTE | 2021-03-26 20:39 | PM.CN.EICU ---
History of Present Illness Consult details Chief complaint: high pulse rate :: This patient was seen via real time interactive two-way audiovisual telecommunication. Narrative: 71 yo female presented w palpitations, noted to be in AF-RVR. Multiple DCCV attempted in ED without success. Pt admitted to ICU for rate control via Cardizem infusion. She currently does not feel any palpitations, but did feel them earlier when her HR was elevated. Per discussion with patient, they have obtained Ivermectin in case they need it for COVID. I asked her if she was vaccinated and pt got visibly upset and told me to stop talking to her. [facility] Medical History (Updated 03/26/21 @ 20:54 by Sasha Venegas MD) Anxiety Autism Chicken pox History of vaginal delivery Hypertension (~2009) Hypothyroidism (~2015) Tinnitus UTI (urinary tract infection) Surgical History Anesthesia History of surgery History of tonsillectomy (~1959) Family History Father Stroke Grandfather Heart disease Mother Stroke Grandfather Heart disease Grandmother Heart disease Social History household members: spouse Smoking Status: Never smoker alcohol intake: former Current Medications Current Medications Medications: Home Medications levothyroxine 50 mcg tablet 50 mcg PO QAM 03/08/20 [History Confirmed 03/26/21] melatonin 1 mg tablet 6 mg PO BEDTIME PRN 03/08/20 [History Confirmed 03/26/21] magnesium citrate 100 mg capsule 400 mg PO QID 03/26/21 [History Confirmed 03/26/21] Visit Medications (administered) Generic Name Dose Route Start Last Admin Trade Name Freq PRN Reason Stop Dose Admin Diltiazem HCl 125 mg/ Sodium 125 mls @ 5 mls/hr 03/26/21 17:30 03/26/21 19:14 Chloride IV 20 mg/hr TITRATE DOMINIQUE 20 mls/hr Titration Protocol 5 MG/HR Exam Vital Signs (past 8 hours): - 03/26/21 14:10 03/26/21 14:11 03/26/21 14:12 Temperature 98.2 F Pulse Rate 151 H 142 H 129 H Respiratory Rate 15 Blood Pressure 131/89 131/89 Pulse Oximetry 98 95 98 03/26/21 14:30 03/26/21 14:31 03/26/21 15:00 Temperature Pulse Rate 162 H 163 H 163 H Respiratory Rate 15 19 17 Blood Pressure 130/92 H 120/59 L Pulse Oximetry 100 96 100 03/26/21 15:17 03/26/21 15:24 03/26/21 15:26 Temperature Pulse Rate 165 H 155 H 158 H Respiratory Rate 24 18 14 Blood Pressure 143/83 H Pulse Oximetry 100 99 100 03/26/21 15:28 03/26/21 15:30 03/26/21 15:32 Temperature Pulse Rate 162 H 164 H 163 H Respiratory Rate 23 22 14 Blood Pressure 115/82 Pulse Oximetry 100 99 97 03/26/21 15:34 03/26/21 15:36 03/26/21 15:38 Temperature Pulse Rate 162 H 162 H 165 H Respiratory Rate 19 15 16 Blood Pressure Pulse Oximetry 99 100 100 03/26/21 15:40 03/26/21 15:42 03/26/21 15:44 Temperature Pulse Rate 163 H 164 H 161 H Respiratory Rate 18 17 18 Blood Pressure Pulse Oximetry 100 99 99 03/26/21 15:46 03/26/21 15:48 03/26/21 15:50 Temperature Pulse Rate 162 H 164 H 170 H Respiratory Rate 19 25 H 17 Blood Pressure Pulse Oximetry 100 99 100 03/26/21 15:52 03/26/21 15:54 03/26/21 15:56 Temperature Pulse Rate 167 H 168 H 166 H Respiratory Rate 27 H 25 H 19 Blood Pressure Pulse Oximetry 98 98 99 03/26/21 15:58 03/26/21 16:00 03/26/21 16:02 Temperature Pulse Rate 164 H 168 H 190 H Respiratory Rate 36 H 16 57 H Blood Pressure 111/82 Pulse Oximetry 98 03/26/21 16:04 03/26/21 16:06 03/26/21 16:08 Temperature Pulse Rate 178 H 160 H 156 H Respiratory Rate 45 H 19 22 Blood Pressure Pulse Oximetry 98 100 100 03/26/21 16:10 03/26/21 16:12 03/26/21 16:14 Temperature Pulse Rate 158 H 156 H 155 H Respiratory Rate 18 21 27 H Blood Pressure Pulse Oximetry 99 99 99 09/13/21 16:16 03/26/21 16:18 03/26/21 16:20 Temperature Pulse Rate 158 H 164 H 163 H Respiratory Rate 25 H 23 19 Blood Pressure Pulse Oximetry 99 100 99 03/26/21 16:22 03/26/21 16:24 03/26/21 16:26 Temperature Pulse Rate 160 H 159 H 164 H Respiratory Rate 19 19 23 Blood Pressure Pulse Oximetry 99 99 99 03/26/21 16:28 03/26/21 16:30 03/26/21 16:32 Temperature Pulse Rate 169 H 163 H 161 H Respiratory Rate 20 17 19 Blood Pressure 97/65 Pulse Oximetry 100 98 99 03/26/21 16:34 03/26/21 16:36 03/26/21 16:38 Temperature Pulse Rate 162 H 157 H 162 H Respiratory Rate 19 24 23 Blood Pressure Pulse Oximetry 98 98 98 03/26/21 16:40 03/26/21 16:42 03/26/21 16:44 Temperature Pulse Rate 166 H 165 H 167 H Respiratory Rate 22 23 22 Blood Pressure Pulse Oximetry 100 99 99 03/26/21 16:46 03/26/21 16:48 03/26/21 16:50 Temperature Pulse Rate 188 H 133 H 192 H Respiratory Rate 44 H 16 51 H Blood Pressure Pulse Oximetry 99 03/26/21 16:52 03/26/21 16:54 03/26/21 16:56 Temperature Pulse Rate 190 H 171 H 160 H Respiratory Rate 39 H 34 H 21 Blood Pressure Pulse Oximetry 96 99 99 03/26/21 17:00 03/26/21 17:02 03/26/21 17:04 Temperature Pulse Rate 160 H 159 H 154 H Respiratory Rate 18 19 13 Blood Pressure 113/59 L 112/82 114/88 Pulse Oximetry 99 99 99 03/26/21 17:06 03/26/21 17:10 03/26/21 17:15 Temperature Pulse Rate 162 H 159 H 156 H Respiratory Rate 18 26 H 20 Blood Pressure 103/88 145/99 H 130/96 H Pulse Oximetry 99 96 98 03/26/21 17:18 03/26/21 17:20 03/26/21 17:30 Temperature Pulse Rate 168 H 163 H 151 H Respiratory Rate 16 15 17 Blood Pressure 138/117 H 139/117 H 118/77 Pulse Oximetry 98 98 98 03/26/21 17:35 03/26/21 17:36 03/26/21 17:47 Temperature Pulse Rate 154 H 148 H 149 H Respiratory Rate 24 Blood Pressure 118/77 118/77 148/82 H Pulse Oximetry 98 03/26/21 18:00 03/26/21 18:11 03/26/21 18:13 Temperature Pulse Rate 127 H 160 H Respiratory Rate 21 50 H Blood Pressure 119/81 121/87 Pulse Oximetry 96 03/26/21 18:15 03/26/21 18:25 03/26/21 18:30 Temperature Pulse Rate 144 H 137 H Respiratory Rate 19 27 H Blood Pressure 116/58 L 141/97 H Pulse Oximetry 98 98 03/26/21 18:50 03/26/21 19:00 03/26/21 19:30 Temperature Pulse Rate 155 H 145 H 109 H Respiratory Rate 22 15 16 Blood Pressure 118/85 123/97 H Pulse Oximetry 99 97 97 03/26/21 20:00 Temperature Pulse Rate 99 H Respiratory Rate 18 Blood Pressure 108/69 Pulse Oximetry 97 Oxygen Delivery Method Room Air Objective Labs Result Diagrams: 03/26/21 14:15 03/26/21 14:15 Labs: Laboratory Results - last 24 hr 03/26/21 03/26/21 03/26/21 14:15 14:15 14:15 WBC 8.3 RBC 5.00 Hgb 14.9 Hct 44.3 MCV 88.7 MCH 29.9 MCHC 33.7 RDW 14.7 Plt Count 257 Neut % (Auto) 47.0 L Lymph % (Auto) 44.8 H [place] % (Auto) 6.4 Eos % (Auto) 1.3 L Baso % (Auto) 0.5 Neut # (Auto) 3900 Lymph # (Auto) 3700 [place] # (Auto) 500 Eos # (Auto) 100 Baso # (Auto) 0 Sodium 140 Potassium 3.4 Chloride 104 Carbon Dioxide 28 BUN 19 H Creatinine 0.70 Estimated GFR > 60.0 BUN/Creatinine Ratio 27.1 H Glucose 110 Calcium 10.1 Magnesium 2.2 Total Bilirubin 0.7 AST 30 ALT 18 Alkaline Phosphatase 58 Total Creatine Kinase 98 CK-MB (CK-2) TNP CK-MB (CK-2) Rel Index TNP Troponin I < 0.012 NT-Pro-B Natriuret Pep 58 Total Protein 7.8 Albumin 4.8 Globulin 3.0 Albumin/Globulin Ratio 1.6 Lipase 161 TSH 9.88 H Free T4 0.85 Urine RBC Urine WBC Ur Squamous Epith Cells Ur Transition Epith Cell Ur Renal Epithelial Cell Calcium Oxalate Crystal Uric Acid Crystals Triple Phos Crystals Other Crystals Amorphous Sediment Urine Bacteria Hyaline Casts Granular Casts RBC Casts WBC Casts Other Casts Urine Mucus Urine Trichomonas Urine Yeast Urine Sperm Ur Culture Indicated? Micro UA Comment SARS-CoV-2 (PCR) 03/26/21 03/26/21 15:50 16:14 WBC RBC Hgb Hct MCV MCH MCHC RDW Plt Count Neut % (Auto) Lymph % (Auto) [place] % (Auto) Eos % (Auto) Baso % (Auto) Neut # (Auto) Lymph # (Auto) [place] # (Auto) Eos # (Auto) Baso # (Auto) Sodium Potassium Chloride Carbon Dioxide BUN Creatinine Estimated GFR BUN/Creatinine Ratio Glucose Calcium Magnesium Total Bilirubin AST ALT Alkaline Phosphatase Total Creatine Kinase CK-MB (CK-2) CK-MB (CK-2) Rel Index Troponin I NT-Pro-B Natriuret Pep Total Protein Albumin Globulin Albumin/Globulin Ratio Lipase TSH Free T4 Urine RBC Cancelled Urine WBC Cancelled Ur Squamous Epith Cells Cancelled Ur Transition Epith Cell Cancelled Ur Renal Epithelial Cell Cancelled Calcium Oxalate Crystal Cancelled Uric Acid Crystals Cancelled Triple Phos Crystals Cancelled Other Crystals Cancelled Amorphous Sediment Cancelled Urine Bacteria Cancelled Hyaline Casts Cancelled Granular Casts Cancelled RBC Casts Cancelled WBC Casts Cancelled Other Casts Cancelled Urine Mucus Cancelled Urine Trichomonas Cancelled Urine Yeast Cancelled Urine Sperm Cancelled Ur Culture Indicated? Cancelled Micro UA Comment Cancelled SARS-CoV-2 (PCR) Negative Assessment & Plan Assessment and plan (1) Atrial fibrillation, new onset: Status: Acute Plan: -Cont Cadizem infusion, Start and uptitrate PO (start w cardizem 30mg q6h) and wean IV as BP tolerates -Keep K > 4.0. Mg > 2.0 -Pts [id number] score is 2, agree with starting oral anticoagulant -Would ask what dose of Ivermectin patient was taking. If high dose (animal doses) could have precipitated AFib (2) Hypothyroidism: Status: Chronic Plan: TSH elevated but FT4 in low normal range. OK to f/u as outpatient and potentially inc dose by primary care doctor. COVID-19 COVID-19 status: Negative Result date/Date tested (Pos, Neg/Pending): 03/26/21 Time Spent With Patient Critical Care time: I spent a total of 35 minutes of critical care time on this patient's care today; this time is exclusive of procedural time.
[2021-03-26 21:10] LABS: Culture Indicated Urine Specimen Cultured; RBC Urine 0-1/HPF (0-5/HPF); WBC Urine 5-10/HPF (0-5/HPF)
[2021-03-26 22:26] LABS: COVID19 - ADMIT (NP swab/PCR) Negative (Negative)
[2021-03-26] MEDS: MELATONIN 3 MG TABLET 6 MG PO (22:44)
[2021-03-26] MEDS: POTASSIUM CHLORIDE 10 MEQ TAB PO (23:20)
[2021-03-26] MEDS: dilTIAZem 30 MG TABLET PO (23:20)
[2021-03-27] VITALS (16 sets, daily range): BP systolic 83–145; BP diastolic 53–78; PULSE 55–121; RESP 8–29; TEMP 36.4–36.6; O2SAT 95–100
[2021-03-27] MEDS: dilTIAZem 125 MG in DEXTROSE 5 % IN WATER 100 ML 10 ML IV (00:16)
[2021-03-27] MEDS: LORazepam 1 MG TABLET PO (00:58)
--- NOTE | 2021-03-27 02:31 | PC.NURSE ---
03/26/212029 Assessment. Education on atrial fibrillation and plan of care. Verbalized understanding. 2099 Patient becomes distressed during examination by tele-director of strategic programs. This nurse was not present. 2129 MILLING SUPERVISOR Julian at bedside. 2204 MILLING SUPERVISOR Julian states patient desires a change of nurse and to not interact with director of strategic programs. Request honored. Assignment switch made.
[2021-03-27 05:11] LABS: Prothrombin Time 11.8 SECONDS (10.1-12.7)
[2021-03-27 05:13] LABS: PTT Partial Thromboplastin Tim 31 SECONDS (26.4-36.2)
[2021-03-27 05:16] LABS: BUN Creatinine Ratio 31.7 (6-22); Blood Urea Nitrogen 20 mg/dL (7-17); Carbon Dioxide 25 mmol/L (22-32); Chloride 111 mmol/L (98-107); Cholesterol 207 mg/dL (140-199); Estimated Glomerular Filt Rate > 60.0 mL/min (>60); Glucose 103 mg/dL (80-110); HDL Cholesterol 70 mg/dL (40-60); HEMOLYSIS < 15 (0-50); LDL Cholesterol Calculated 118 mg/dL (<100); Potassium 3.9 mmol/L (3.4-5.1); Sodium 141 mmol/L (137-145); Triglycerides 94 mg/dL (35-150)
[2021-03-27 05:28] LABS: Troponin I 0.073 ng/mL (0.01-0.034)
[2021-03-27] MEDS: LEVOTHYROXINE 50 MCG TABLET 75 MCG PO (06:11)
[2021-03-27] MEDS: PANTOPRAZOLE DR 20 MG TABLET PO (06:12)
[2021-03-27] MEDS: dilTIAZem 30 MG TABLET PO (06:12)
[2021-03-27] MEDS: APIXABAN 5 MG TABLET PO ×2 (09:35→20:04)
[2021-03-27] MEDS: METOPROLOL IR 25 MG TABLET PO ×2 (09:35→20:04)
--- NOTE | 2021-03-27 12:58 | DI.ECHO.S_ITS ---
:Reason For Study: ATRIAL FIBRILLATION : :Ordering Physician: CHIRAG, : :JOYCE Performed By: Kamryn Wills : :Referring: JOYCE BEARD : + + Interpretation Summary Left ventricular systolic function appears normal with an estimated ejection fraction of 60 to 65% without any focal wall motion abnormality. Diastolic function is likely normal with normal filling pressures. The right ventricle appears normal. Right ventricular systolic pressure is estimated at 20 mmHg with a CVP of 3 mmHg. Both atria are normal in size. There is mild tricuspid regurgitation but no other significant valvular abnormality. The ascending aorta is mildly enlarged. The patient was in sinus rhythm during the exam. Procedure: A two-dimensional transthoracic echocardiogram with color flow and Doppler was performed. The study quality was technically adequate. There is no prior echocardiogram noted for this patient. The patient was in sinus rhythm with heart rates between 57-68 bpm during the exam. Left Ventricle: The left ventricle appears normal in size, wall thickness, and systolic function without any focal wall motion abnormalities. There is mild proximal septal thickening noted. There is no thrombus. The ejection fraction is estimated to be 60-65%. Diastolic parameters suggest probable normal left ventricular diastolic function and normal filling pressures. Right Ventricle: The right ventricle is normal in size and function. Atria: Both atria are normal in size. There is no Doppler evidence for an interatrial shunt. Mitral Valve: The mitral valve is normal in structure and function. There is trace mitral regurgitation. Aortic Valve: The aortic valve is trileaflet. The aortic valve opens well. There is no aortic valve stenosis. There is trace aortic regurgitation. Tricuspid Valve: The tricuspid valve is normal in structure and function. There is mild tricuspid regurgitation. The right ventricular systolic pressure is estimated to be at least 20 mmHg based on an estimated right atrial pressure of 3 mm Hg. Pulmonic Valve: The pulmonic valve is not well visualized. There is trace pulmonic regurgitation. Great Vessels: The aortic root is normal size. The ascending aorta is mildly enlarged. The IVC is of normal diameter and collapses greater than 50% with a sniff. This suggests a low right atrial pressure of 3 mm Hg. Pericardium/ Pleura There is no pericardial effusion. There is no pleural effusion. MMode/2D Measurements & Calculations LVIDd: 4.3 cm LVOT diam: 2.0 cm LVIDs: 2.8 cm Ao root diam: 3.4 cm FS: 34.7 % asc Aorta Diam: 3.7 cm IVSd: 1.2 cm Ao Arch Diam (Prox Trans): 3.3 cm LVPWd: 0.80 cm LV yang. diameter/BSA (cm/m^2): 2.4 LV sys. diameter/BSA (cm/m^2): 1.5 LA A2 area: 19.1 cm2 RA long axis: 4.6 cm LA A4 area: 12.9 cm2 RA area: 15.8 cm2 LA length (vol): 4.1 cm RA vol: 46.5 ml LA vol: 51.4 ml RA : 25.4 ml/m2 LA vol index: 28.1 ml/m2 IVC diam: 1.6 cm RVD1 (basal): 3.6 cm TAPSE: 1.8 cm Doppler Measurements & Calculations Ao V2 max: 141.6 cm/sec LVOT Max Cory: 156.6 cm/sec Ao V2 mean: 105.3 cm/sec LV V1 max P.8 mmHg Ao max P.0 mmHg LV V1 VTI: 33.1 cm Ao mean P.9 mmHg SCOTT(I,D): 3.3 cm2 Ao V2 VTI: 31.7 cm SCOTT(V,D): 3.5 cm2 sev ratio: 1.0 SCOTT indexed to BSA (cm^2/m^2): 1.8 MV E max cory: 88.4 cm/sec TR max cory: 202.9 cm/sec MV A max cory: 87.1 cm/sec TR max P.5 mmHg MV E/A: 1.0 PA V2 max: 89.8 cm/sec Med Peak E' Cory: 6.5 cm/sec PA V2 mean: 61.8 cm/sec E/E' med: 13.7 PA mean P.8 mmHg Lat Peak E' Cory: 7.8 cm/sec PA pr(Accel): 36.2 mmHg E/E' lat: 11.3 E/e' average: 12.5 MV dec time: 0.15 sec SV(LVOT): 105.3 ml Reading Physician:11:00 AM
--- NOTE | 2021-03-27 14:22 | PC.NURSE ---
Day Shift Note Afib CVR/RVR on AM assessment, rate varying 80-120s. Intermittent aberrancy noted and confirmed by MD. Denies pain, denies shortness of breath. Metoprolol PO administered per MD order. Off tele for shower, when reconnected at 1107 NSR/SB noted. Dr. Emery updated and medications adjusted (see orders).
--- NOTE | 2021-03-27 15:42 | P.PN_ITS ---
Subjective Subjective Date Patient Seen: 03/27/21 Interval history: 71-year-old female admitted with new onset AFib with RVR. Patient was on diltiazem drip and oral diltiazem overnight. She converted shortly after metoprolol tartrate 25 mg p.o. given this morning. Exam Vital Signs (past 8 hours): - 03/27/21 08:30 03/27/21 12:20 Temperature 98 F 97.6 F Pulse Rate 88 55 L Respiratory Rate 17 17 Blood Pressure 109/77 107/67 Pulse Oximetry 98 98 Oxygen Delivery Method Room Air Oxygen Flow Rate 0 Narrative Exam Narrative: General: Alert, NAD Objective Labs Result Diagrams: 03/26/21 14:15 03/27/21 04:35 Labs: Laboratory Results - last 24 hr 03/26/21 03/26/21 03/26/21 14:15 15:50 16:14 PT INR APTT Sodium Potassium Chloride Carbon Dioxide BUN Creatinine Estimated GFR BUN/Creatinine Ratio Glucose Calcium Troponin I Triglycerides Cholesterol LDL Cholesterol, Calc HDL Cholesterol Free T4 0.85 Urine RBC 0-1/hpf Urine WBC 5-10/hpf H Ur Squamous Epith Cells [employer] Manager Ur Transition Epith Cell [employer] Manager Ur Renal Epithelial Cell [employer] Manager Calcium Oxalate Crystal [employer] Manager Uric Acid Crystals [employer] Manager Triple Phos Crystals [employer] Manager Other Crystals [employer] Manager Amorphous Sediment [employer] Manager Urine Bacteria None seen Hyaline Casts [employer] Manager Granular Casts [employer] Manager RBC Casts [employer] Manager WBC Casts [employer] Manager Other Casts [employer] Manager Urine Mucus [employer] Manager Urine Trichomonas [employer] Manager Urine Yeast [employer] Manager Urine Sperm [employer] Manager Ur Culture Indicated? Specimen cultured Micro UA Comment [employer] Manager Nasal Screen MRSA (PCR) SARS-CoV-2 (PCR) Negative 03/26/21 03/26/21 03/27/21 21:00 21:00 04:35 PT 11.8 INR 1.0 APTT 31 Sodium Potassium Chloride Carbon Dioxide BUN Creatinine Estimated GFR BUN/Creatinine Ratio Glucose Calcium Troponin I Triglycerides Cholesterol LDL Cholesterol, Calc HDL Cholesterol Free T4 Urine RBC Urine WBC Ur Squamous Epith Cells Ur Transition Epith Cell Ur Renal Epithelial Cell Calcium Oxalate Crystal Uric Acid Crystals Triple Phos Crystals Other Crystals Amorphous Sediment Urine Bacteria Hyaline Casts Granular Casts RBC Casts WBC Casts Other Casts Urine Mucus Urine Trichomonas Urine Yeast Urine Sperm Ur Culture Indicated? Micro UA Comment Nasal Screen MRSA (PCR) Negative for mrsa SARS-CoV-2 (PCR) Negative 03/27/21 04:35 PT INR APTT Sodium 141 Potassium 3.9 Chloride 111 H Carbon Dioxide 25 BUN 20 H Creatinine 0.63 Estimated GFR > 60.0 BUN/Creatinine Ratio 31.7 H Glucose 103 Calcium 9.0 Troponin I 0.073 H Triglycerides 94 Cholesterol 207 H LDL Cholesterol, Calc 118 H HDL Cholesterol 70 H Free T4 Urine RBC Urine WBC Ur Squamous Epith Cells Ur Transition Epith Cell Ur Renal Epithelial Cell Calcium Oxalate Crystal Uric Acid Crystals Triple Phos Crystals Other Crystals Amorphous Sediment Urine Bacteria Hyaline Casts Granular Casts RBC Casts WBC Casts Other Casts Urine Mucus Urine Trichomonas Urine Yeast Urine Sperm Ur Culture Indicated? Micro UA Comment Nasal Screen MRSA (PCR) SARS-CoV-2 (PCR) [facility] Medical History (Updated 03/27/21 @ 01:41 by Raquel Jordan [facility]) Anxiety Autism Chicken pox History of diverticulitis History of vaginal delivery Hypertension (~2009) Hypothyroidism (~2015) Tinnitus UTI (urinary tract infection) Surgical History Anesthesia History of surgery History of tonsillectomy (~1960) Family History Father Stroke Grandfather Heart disease Mother Stroke Grandfather Heart disease Grandmother Heart disease Social History household members: spouse Smoking Status: Never smoker alcohol intake: former Assessment & Plan Assessment & Plan narrative: 1. New onset atrial fibrillation with RVR -converted to sinus rhythm this a.m. shortly after oral metoprolol tartrate -continue metoprolol tartrate 25 mg b.i.d. -discontinued diltiazem IV drip and oral diltiazem, esmolol was written but never administered -continue Eliquis 5 mg b.i.d. -echo -telemetry monitoring -discharge home tomorrow if stable 2. Acute on chronic anxiety -can use low-dose benzo as needed in hospital -discussed with patient to consider SSRI, discuss with PCP 3. Hypothyroidism -TSH 9.88, low normal free T4 -increase levothyroxine from 50 mcg to 75 mcg q.a.m. Time Spent With Patient Critical Care time: I spent a total of [] minutes of critical care time on this patient's care today; this time is exclusive of procedural time.
--- NOTE | 2021-03-27 17:04 | CM.DANOTE ---
DCP/Assessment: Reviewed chart. Patient is a 71yr old female admitted to [facility] with AFIB with RVR. PCP is Dr. Jasmine at [facility]. Primary payor is 1)[facility]. Met with patient explained CM/SW role. Patient reports that she is completely I with all ADL's. Patient plans to d/c home when medically stable. Patient resides with her spouse in [place]. Patient reports to GLUER MACHINE SETUP OPERATOR that last evening she had tough time with staff at [facility]. Patient reports that she felt harassed about not having COVID vaccination by [facility] staff. Provided patient with appropriate name/numbers at [facility] to follow up. No additional needs identified. P: Home when stable. [facility] Discharge Planning/Care Management CM Discharge Assessment Start: 03/27/21 17:03 Freq: Status: Active Protocol: Document 03/27/21 17:03 KJ (Rec: 03/27/21 17:04 [facility] [id number]) Discharge Planning Assessment Assigned Asset Management Analyst PHAN Terry Contact Information Grant Alfaro (spouse) ph# Advance Directives? No Advance Directives on File No History Provided By Patient,Medical Record Prior Living Arrangements House Household Members spouse Type of transporation used prior to Drives own vehicle admit Independent with ADL's Yes Is patient alert and oriented? Yes Caregiver for Another No Discharge Plan Home Transportation Arrangement Family to provide transport. Referrals Initiated None needed Whiteboard Updated in Patient Room with Yes name and ext. # of Asset Management Analyst Review Status In Process Next Review Type Continued Stay Review
[2021-03-27] MEDS: SENNOSIDES 8.6 MG TABLET 17.2 MG PO (20:04)
[2021-03-27] MEDS: SODIUM CHLORIDE 0.9% FLUSH 10 ML IV (20:05)
[2021-03-27] MEDS: MELATONIN 3 MG TABLET 6 MG PO (20:29)
[2021-03-28 00:25] VITALS: BP 135/70; PULSE 66; RESP 18; TEMP 36.2; O2SAT 100
[2021-03-28 00:37] VITALS: O2SAT 100
[2021-03-28 04:30] VITALS: BP 131/67; PULSE 67; RESP 16; TEMP 36.2; O2SAT 99
[2021-03-28 05:01] LABS: BUN Creatinine Ratio 28.8 (6-22); Blood Urea Nitrogen 17 mg/dL (7-17); Calcium 9.4 mg/dL (8.4-10.2); Carbon Dioxide 28 mmol/L (22-32); Chloride 109 mmol/L (98-107); Estimated Glomerular Filt Rate > 60.0 mL/min (>60); Glucose 107 mg/dL (80-110); HEMOLYSIS 16 (0-50); Potassium 4.1 mmol/L (3.4-5.1); Sodium 141 mmol/L (137-145)
[2021-03-28] MEDS: LEVOTHYROXINE 50 MCG TABLET 75 MCG PO (06:00)
[2021-03-28 08:00] VITALS: BP 164/87; PULSE 64; RESP 17; TEMP 36.8; O2SAT 100
[2021-03-28] MEDS: METOPROLOL IR 25 MG TABLET PO (08:10)
[2021-03-28] MEDS: APIXABAN 5 MG TABLET PO (08:10)
[2021-03-28] MEDS: SODIUM CHLORIDE 0.9% FLUSH 10 ML IV (08:37)
--- NOTE | 2021-03-28 10:36 | PC.NURSE ---
Discharge Note Pt discharged to home with friend at 1020. Ambulated to hospital exit with staff member escorting. Written and verbal d/c instructions given on atrial fibrillation, metoprolol, eliquis, and follow up. All questions answered. All belongings with pt including clothing, glasses, and cell phone/farm general manager.
--- NOTE | 2021-03-28 10:43 | CM.DPC ---
DCP Discharge Home Per MD, pt is medically stable to d/c home today with no identified barriers to discharge. Per RN, no concerns noted for d/c today and no further SW needs at this time. Plan: Patient to d/c home today via spouse POV and no d/c planning needs at this time. PHAN Duong
--- NOTE | 2021-03-28 15:18 | P.DS_ITS ---
History of Present Illness History of Present Illness Chief complaint: high pulse rate Narrative: 71 yo female presented w palpitations, noted to be in AF-RVR. Multiple DCCV attempted in ED without success.? Discharge Providers Provider Date of admission: 03/26/21 17:51 Discharge Date: 03/28/21 Discharge provider: Mustapha Emery MD Summary Hospital Course Discharge Diagnosis: 1. New onset paroxysmal atrial fibrillation with RVR 2. Hypothyroidism 3. Anxiety 1. New onset atrial fibrillation with RVR -troponins normal, no ischemic changes on EKG -on diltiazem drip overnight, had periodic wide complex beats consistent with aberrant conduction -converted to sinus rhythm after oral metoprolol tartrate -continue metoprolol tartrate 25 mg b.i.d. -continue Eliquis 5 mg b.i.d. -echo showed normal LV and RV function, normal LV and RV size, no valvular abnormalities -discharged on metoprolol tartrate 25 mg b.i.d. and apixaban 5 mg b.i.d. -follow-up with PCP -consider outpatient cardiology follow-up 2. Acute on chronic anxiety -discussed with patient to consider SSRI, discuss with PCP 3. Hypothyroidism -TSH 9.88, low normal free T4 -increased levothyroxine from 50 mcg to 75 mcg q.a.m. Status at Discharge Overall status at discharge: patient is back to baseline Time Spent with Patient Time spent: Greater than 30 minutes Exam Vital Signs (past 8 hours): - 03/28/21 08:00 Temperature 98.2 F Pulse Rate 64 Respiratory Rate 17 Blood Pressure 164/87 H Pulse Oximetry 100 Oxygen Delivery Method Room Air Oxygen Flow Rate 0 Narrative Exam Narrative: General: Alert, NAD Heart: Regular rhythm Objective Labs Result Diagrams: 03/26/21 14:15 03/28/21 04:25 Labs: Laboratory Results - last 24 hr 03/28/21 04:25 Sodium 141 Potassium 4.1 Chloride 109 H Carbon Dioxide 28 BUN 17 Creatinine 0.59 Estimated GFR > 60.0 BUN/Creatinine Ratio 28.8 H Glucose 107 Calcium 9.4 PFSH Medical History (Updated 03/27/21 @ 01:41 by [facility] Anxiety Autism Chicken pox History of diverticulitis History of vaginal delivery Hypertension (~2009) Hypothyroidism (~2015) Tinnitus UTI (urinary tract infection) Surgical History Anesthesia History of surgery History of tonsillectomy (~1960) Family History Father Stroke Grandfather Heart disease Mother Stroke Grandfather Heart disease Grandmother Heart disease Social History household members: spouse Smoking Status: Never smoker alcohol intake: former Discharge Plan Discharge Plan Patient Disposition: Home Provider Discharge Comment: You were admitted for new onset atrial fibrillation with rapid ventricular rate. Your ECHO showed no heart valve disease or structural abnormalities. You are now back in a normal sinus rhythm. I have prescribed metoprolol tartrate to control heart rate and apixaban blood thinner to prevent stroke complication of afib. Discuss with PCP referring to cardiology or arranging for a Zio Patch to monitor heart rhythm. Discuss with PCP going on SSRI to help with anxiety. I have also increased your dose of levothyroxine to 75 mcg daily based on blood work showing elevated TSH of 9.88 with low normal free T4. Have thyroid labs rechecked in 6 weeks. Discharge orders & Medications Prescriptions: New Eliquis 5 mg Tablet 5 mg PO BID 30 Days Qty: 60 RF: 0 metoprolol tartrate 25 mg Tablet 25 mg PO BID 30 Days Qty: 60 RF: 0 levothyroxine 75 mcg tablet 75 mcg PO DAILY Qty: 30 RF: 0 Continued melatonin 1 mg Tablet 6 mg PO BEDTIME PRN (Reason: Sleep) RF: 0 magnesium citrate 100 mg Capsule 400 mg PO QID RF: 0 Discontinued levothyroxine 50 mcg tablet 50 mcg PO QAM RF: 0 Follow up/Referrals: Koko Jasmine [Other] - 1 Week Diet/Activity/Treatments Diet: Regular Visit Report/Discharge Packet Instructions: DI for Atrial Fibrillation, Metoprolol Discharge Data Attending Provider: Mustapha Emery
== END 2021-03-28 10:20 | disposition home or self-care (01) ==
LOC: ED 17:41 → AC 17:52 → ICU 03-27 07:55
PROVIDERS: Nurse Practitioner Family; Admitting Provider Internal Medicine; Emergency Provider Emergency Medicine; Referring Provider Emergency Medicine; Visit Provider Internal Medicine
DX: I48.0 Paroxysmal atrial fibrillation (principal); F41.9 Anxiety disorder, unspecified; F84.5 Asperger's syndrome; E03.9 Hypothyroidism, unspecified; Z20.822 Contact with and (suspected) exposure to COVID-19
CPT/HCPCS: 36415; 71045; 80048; 80053; 80061; 81003; 81015; 82550; 83690; 83735; 83880; 84439; 84443; 84484; 85025; 85610; 85730; 87086; 87635; 87797; 92960; 93005; 93010; 93306; 96374; 96375; 99152; 99153; 99285; 99291; C9803; G0378

== ENCOUNTER 2021-04-12 21:01 | Emergency (ER) | payer OTHER, SELFPAY ==
[2021-03-26 18:48] VITALS: BMI 24.8
--- NOTE | 2021-04-12 21:05 | ED_ITS ---
HPI - General Adult General Chief complaint: Arrhythmia/Palpitations Stated complaint: SOB, dizzy, rapid pulse Time Seen by Provider: 04/12/21 21:02 Source: patient Mode of arrival: Ambulatory History of Present Illness HPI narrative: Patient is a 71-year-old female. Earlier this month she had her 1st episode of atrial fibrillation. Was seen in the emergency department and was a attempted cardioversion. This was unsuccessful and she was admitted to the hospital for rate control. She eventually converted with metoprolol. Was sent home on Eliquis. Has been on metoprolol since then. Has an appointment with Cardiology tomorrow. She stated that earlier today she started to have episodes where she felt like her pulse was going fast. She was somewhat short of breath and dizzy. She was concerned that maybe she was back in atrial fibrillation. She does admit to being a little nervous about her appointment Cardiology tomorrow. Denies chest pain. Has not taken her evening dose of Eliquis and metoprolol. Related Data Home Medications Medication Instructions Recorded Confirmed melatonin 1 mg tablet 6 mg PO BEDTIME PRN 03/08/20 03/26/21 magnesium citrate 100 mg capsule 400 mg PO QID 03/26/21 03/26/21 Previous Rx's Medication Instructions Recorded apixaban 5 mg tablet (Eliquis) 5 mg PO BID 30 Days #60 tab 03/28/21 levothyroxine 75 mcg tablet 75 mcg PO DAILY #30 tab 03/28/21 metoprolol tartrate 25 mg tablet 25 mg PO BID 30 Days #60 tab 03/28/21 Allergies Allergy/AdvReac Type Severity Reaction Status Date / Time No Known Drug Allergies Allergy Verified 03/26/21 14:16 Review of Systems Constitutional Constitutional: Reports as per HPI and Reports system reviewed and no additional complaints, except as documented Cardiovascular Cardiovascular: Reports as per HPI and Reports system reviewed and no additional complaints, except as documented Respiratory Respiratory: Reports system reviewed and no additional complaints, except as documented Gastrointestinal Gastrointestinal: Reports system reviewed and no additional complaints, except as documented Musculoskeletal Musculoskeletal: Reports system reviewed and no additional complaints, except as documented Integumentary/Breasts Skin/Breast: Reports system reviewed and no additional complaints, except as documented Hematologic/Lymphatic On Anticoagulants: Yes Patient History Medical History Anxiety Autism Chicken pox History of diverticulitis History of vaginal delivery Hypertension (~2009) Hypothyroidism (~2016) Tinnitus UTI (urinary tract infection) Surgical History Anesthesia History of surgery History of tonsillectomy (~1960) Family History Father Stroke Grandfather Heart disease Mother Stroke Grandfather Heart disease Grandmother Heart disease Social History household members: spouse Smoking Status: Never smoker alcohol intake: former Smoking Status: Never smoker Substance Use Type: does not use Exam Initial Vital Signs Initial Vital Signs: Vital Signs Pulse Rate 103 H 04/12/21 21:07 Respiratory Rate 17 04/12/21 21:07 Pulse Oximetry 100 04/12/21 21:07 HENMT Head: normal to inspection and normocephalic Eyes General: appearance normal, both eyes and all related structures Resp Effort & Inspection: normal respiratory effort Auscultation: clear to auscultation bilaterally Cardio Rate: regular rate Rhythm: regular rhythm GI Inspection: normal to inspection Skin General: no rashes or lesions noted Neuro General: patient alert, patient awake, patient oriented x3 and moves all extremities Extrem General: normal to inspection and No edema Psych Appearance: grossly normal and well kempt Course Orders Ordered: ED Orders 04/12/21 21:06 EKG-12 Lead Stat Vital Signs Vital signs: Vital Signs - 8 hr 04/12/21 21:07 04/12/21 21:08 04/12/21 21:30 Temperature 97.9 F Pulse Rate 103 H 103 H 90 Respiratory Rate 17 18 16 Blood Pressure 192/104 H 145/80 H Pulse Oximetry 100 98 99 Medical Decision Making ECG Data Attestation: I personally reviewed and interpreted this ECG as follows: Prior ECG tracings: available for review Interpretation: Sinus rhythm Ventricular rate 82 Head to PVCs in a row Otherwise normal QRS Normal QTC Normal axis No ST T wave changes MDM Narrative Medical decision making narrative: Other than occasional PVCs the patient has had no ectopy here in the monitor. She is in sinus rhythm. Her blood pressure improved with time. She did take her night dose of metoprolol and also her Eliquis. No further workup needed here in the emergency department. Have her keep her appointment with her laboratory scientist tomorrow. She was given return precautions. She expressed understanding and agreement. Discharge Plan Departure Patient Disposition: Home Clinical Impression: Palpitations Instructions: Arrhythmias Activity Restrictions/Additional Instructions: Continue to take all of your medications as directed. Keep your scheduled appointment with Cardiology tomorrow. Return to the emergency department for any new or worsening symptoms. Prescriptions: No Action melatonin 1 mg Tablet 6 mg PO BEDTIME PRN (Reason: Sleep) RF: 0 magnesium citrate 100 mg Capsule 400 mg PO QID RF: 0 Eliquis 5 mg Tablet 5 mg PO BID 30 Days Qty: 60 RF: 0 metoprolol tartrate 25 mg Tablet 25 mg PO BID 30 Days Qty: 60 RF: 0 levothyroxine 75 mcg tablet 75 mcg PO DAILY Qty: 30 RF: 0
[2021-04-12 21:07] VITALS: PULSE 103; RESP 17; O2SAT 100
[2021-04-12 21:08] VITALS: BP 192/104; PULSE 103; RESP 18; TEMP 36.6; O2SAT 98; BMI 25.0
[2021-04-12 21:30] VITALS: BP 145/80; PULSE 90; RESP 16; O2SAT 99
[2021-04-12 22:00] VITALS: BP 150/75; PULSE 83; RESP 21; O2SAT 98
== END 2021-04-12 22:13 | disposition home or self-care (01) ==
PROVIDERS: Emergency Provider Emergency Medicine
DX: R00.2 Palpitations (principal); R42 Dizziness and giddiness; Z79.01 Long term (current) use of anticoagulants
CPT/HCPCS: 93005; 99283

== ENCOUNTER → 2021-05-02 08:53 | Outpatient (CLI) | payer OTHER, SELFPAY ==
[2021-03-26 18:48] VITALS: BMI 24.8
== END ==
PROVIDERS: Visit Provider Nurse Practitioner
DX: R30.0 Dysuria (principal)
CPT/HCPCS: 87086

== ENCOUNTER 2021-05-08 22:47 | Emergency (ER) | payer OTHER, SELFPAY ==
[2021-03-26 18:48] VITALS: BMI 24.8
[2021-05-08 22:53] VITALS: PULSE 154; RESP 31; O2SAT 75; BMI 23.9
[2021-05-08 23:00] VITALS: PULSE 139; RESP 16; O2SAT 100
[2021-05-08 23:04] VITALS: BP 156/90; PULSE 131; RESP 14; O2SAT 99
--- NOTE | 2021-05-08 23:07 | DI.RAD.S_ITS ---
PROCEDURE: XR CHEST 1V INDICATIONS: chest pain TECHNIQUE: One view of the chest was acquired. COMPARISON: [facility], CR, XR CHEST 1V, 03/26/2021, 14:13. FINDINGS: Surgical changes and devices: None. Lungs and pleura: Lungs are clear. No pleural effusions or pneumothorax. Mediastinum: Mediastinal contours appear normal. Heart size is normal. Bones and chest wall: No suspicious bony lesions. Overlying soft tissues appear unremarkable. IMPRESSION: No acute cardiopulmonary abnormality. Dictated by: Dom Myers M.D. on 05/08/2021 at 23:24 Approved by: Dom Myers M.D. on 05/08/2021 at 23:25
[2021-05-08 23:27] LABS: Add Manual Diff / Slide Review NO; Basophils Absolute Auto 100 /uL (0-100); Eosinophils Absolute Auto 100 /uL (0-450); Eosinophils Percent Auto 1.6 % (2-4); Hematocrit 44.6 % (36-46); Hemoglobin 15.2 g/dL (12.0-16.0); Lymphocytes Absolute Auto 3700 /uL (1100-4500); Lymphocytes Percent Auto 38.9 % (25-40); Monocytes Absolute Auto 800 /uL (0-900); Neutrophils Absolute Auto 4800 /uL (1500-7000); Neutrophils Percent Auto 50.5 % (50-75); Platelet Count 277 X10^3/uL (150-400); Red Blood Cell Count 5.07 X10^6/uL (4.0-5.2); Red Cell Distribution Width 13.8 % (11.6-14.8); White Blood Cell Count 9.4 X10^3/uL (4.5-11.0)
[2021-05-08 23:30] VITALS: BP 142/97; PULSE 143; RESP 18; O2SAT 98
--- NOTE | 2021-05-08 23:31 | ED.ARRPALP ---
HPI - Arrhythmia/Palpitations General Chief Complaint: Arrhythmia/Palpitations Stated Complaint: states a-fib Time Seen by Provider: 05/08/21 23:14 Source: patient Mode of arrival: Ambulatory Limitations: no limitations History of Present Illness HPI narrative: Patient is a 71-year-old female. Does have a history of paroxysmal atrial fibrillation. Is on metoprolol although she recently had a decrease in this because she was becoming very ?groggy ?at home. She takes 12.5 mg in the morning and 12.5 mg at night. She is also on apixaban. She has been on this medication for more than 1 month. She has taken at twice a day during this time without missing a dose. She is here for evaluation of palpitations. She thinks that she is in AFib once again. It occurred earlier this evening. She was on a very stressful phone call with a family member in afterwards started to feel the fast heart rate. Related Data Home Medications Medication Instructions Recorded Confirmed melatonin 1 mg tablet 6 mg PO BEDTIME PRN 03/08/20 05/02/21 magnesium citrate 100 mg capsule 400 mg PO QID 03/26/21 05/02/21 apixaban 5 mg tablet (Eliquis) 5 mg PO BID 05/02/21 05/02/21 metoprolol succinate 25 mg 25 mg PO BID 05/02/21 05/02/21 tablet,extended release 24 hr Previous Rx's Medication Instructions Recorded levothyroxine 75 mcg tablet 75 mcg PO DAILY #30 tab 03/28/21 Allergies Allergy/AdvReac Type Severity Reaction Status Date / Time No Known Drug Allergies Allergy Verified 03/26/21 14:16 Review of Systems Constitutional Constitutional: Denies headache(s) ENT Ears, Nose, Mouth, and Throat: Denies headache(s) Cardiovascular Cardiovascular: Reports as per HPI, Reports system reviewed and no additional complaints, except as documented and Denies dyspnea Respiratory Respiratory: Reports system reviewed and no additional complaints, except as documented and Denies dyspnea Gastrointestinal Gastrointestinal: Reports as per HPI and Reports system reviewed and no additional complaints, except as documented Integumentary/Breasts Skin/Breast: Reports system reviewed and no additional complaints, except as documented Neurologic Neurologic: Reports system reviewed and no additional complaints, except as documented and Denies headache(s) Endocrine Endocrine: Reports system reviewed and no additional complaints, except as documented Hematologic/Lymphatic On Anticoagulants: Yes Allergic/Immunologic Allergic/Immunologic: Reports system reviewed and no additional complaints, except as documented Patient History Medical History Anxiety Autism Chicken pox History of diverticulitis History of vaginal delivery Hypertension (~2009) Hypothyroidism (~2015) Tinnitus UTI (urinary tract infection) Surgical History Anesthesia History of surgery History of tonsillectomy (~1960) Family History Father Stroke Grandfather Heart disease Mother Stroke Grandfather Heart disease Grandmother Heart disease Social History household members: spouse Smoking Status: Never smoker alcohol intake: former Smoking Status: Never smoker Substance Use Type: does not use Exam Initial Vital Signs Initial Vital Signs: Vital Signs Pulse Rate 154 H 05/08/21 22:53 Respiratory Rate 31 H 05/08/21 22:53 Pulse Oximetry 75 L 05/08/21 22:53 Const General: cooperative, healthy appearing and comfortable Limitations: mental status not altered HENMT Head: normal to inspection and normocephalic Eyes General: appearance normal, both eyes and all related structures Chest Chest: normal inspection of the chest Resp Effort & Inspection: normal respiratory effort Auscultation: clear to auscultation bilaterally Cardio Rate: tachycardic Rhythm: abnormal rhythm GI Inspection: normal to inspection Back/Spine/Pelvis Back: normal to inspection Skin Lesions: no lesions Rashes: no rashes Neuro General: patient alert, patient awake, patient oriented x3 and moves all extremities Extrem General: normal to inspection, capillary refill normal and No edema Psych Appearance: grossly normal and well kempt Procedures Cardioversion Consent Signed: Yes Indication: AFib with RVR Stability: Stable Number of attempts (shocks): 1 Joules used: 120 Cardiac rhythm post-cardioversion: Sinus rhythm Procedural Sedation Consent signed: Yes Time out performed: Yes Indication: cardioversion Presedation Evaluation: see HPI ASA Class: II Mallampati Airway Classification: Class II Preparation: case monitor applied, pulse oximeter, capnometry used, supplemental O2 applied, suction/airway equipment at bedside and IV secured Fentanyl: IV Fentanyl dose (mcg): 12 IV Propofol dose (mg): 70 Intraservice time/total sedation time (min): 15 ED Sedation Level: Moderate (Concious) Patient Tolerated Procedure: Well and No complications Complications: none Course Orders Ordered: ED Orders 05/08/21 23:03 Complete Blood Count AUTO DIFF Stat Comprehensive Metabolic Panel Stat Lipase Stat Partial Thromboplastin Time Stat Prothrombin Time INR Stat Troponin & CK Cardiac Panel Stat 05/08/21 23:07 XR chest 1V Stat 05/08/21 23:57 COVID19 -Nasal swab/Pre-Proc Stat 05/09/21 00:56 EKG-12 Lead Stat Discontinued Medications Fentanyl (Fentanyl 100 Mcg/2 Ml Inj) 12.5 mcg IV NOW ONE Stop: 05/08/21 23:32 Last Admin: 05/09/21 00:35 Dose: 12.5 mcg Documented by: SCAR Propofol (Propofol 200 Mg/20 Ml Vial) 100 mg IV NOW ONE Stop: 05/08/21 23:32 Last Admin: 05/09/21 00:40 Dose: 70 mg Documented by: SCAR Vital Signs Vital signs: Vital Signs - 8 hr 05/08/21 22:53 05/08/21 23:00 05/08/21 23:04 Pulse Rate 154 H 139 H 131 H Respiratory Rate 31 H 16 14 Blood Pressure 156/90 H Pulse Oximetry 75 L 100 99 05/08/21 23:30 05/09/21 00:00 05/09/21 00:35 Pulse Rate 143 H 140 H 154 H Respiratory Rate 18 12 18 Blood Pressure 142/97 H 134/79 137/90 Pulse Oximetry 98 97 98 05/09/21 00:37 05/09/21 00:40 05/09/21 00:45 Pulse Rate 138 H 125 H 89 Respiratory Rate 22 9 L 18 Blood Pressure 124/67 118/65 Pulse Oximetry 100 96 05/09/21 00:50 05/09/21 00:55 05/09/21 01:00 Pulse Rate 85 83 83 Respiratory Rate 18 22 18 Blood Pressure 120/75 125/79 141/96 H Pulse Oximetry 97 96 99 05/09/21 01:05 05/09/21 01:10 Pulse Rate 80 81 Respiratory Rate 20 20 Blood Pressure 143/96 H 142/96 H Pulse Oximetry 98 98 MDM - Arrhythmia/Palpitations Lab Data Attestation: I reviewed the patient's lab results. Result diagrams: 05/08/21 23:03 05/08/21 23:03 Labs: Lab Results 05/08/21 05/08/21 05/08/21 Range/Units 23:03 23:03 23:03 WBC 9.4 (4.5-11.0) X10^3/uL RBC 5.07 (4.0-5.2) X10^6/uL Hgb 15.2 (12.0-16.0) g/dL Hct 44.6 (36-46) % MCV 88.0 (80-100) fL MCH 30.0 (26-34) PG MCHC 34.0 (30-36) % RDW 13.8 (11.6-14.8) % Plt Count 277 (150-400) X10^3/uL Neut % (Auto) 50.5 (50-75) % Lymph % (Auto) 38.9 (25-40) % Childress % (Auto) 8.0 (3-14) % Eos % (Auto) 1.6 L (2-4) % Baso % (Auto) 1.0 (0-2) % Neut # (Auto) 4800 (5464-1510) /uL Lymph # (Auto) 3700 (9150-2575) /uL Childress # (Auto) 800 (0-900) /uL Eos # (Auto) 100 (0-450) /uL Baso # (Auto) 100 (0-100) /uL PT 14.3 H (10.1-12.7) SECONDS INR 1.3 (0.9-1.3) APTT 37 H D (26.4-36.2) SECONDS Sodium 141 (137-145) mmol/L Potassium 3.6 (3.4-5.1) mmol/L Chloride 104 (98-107) mmol/L Carbon Dioxide 29 (22-32) mmol/L BUN 21 H (7-17) mg/dL Creatinine 0.73 (0.52-1.04) mg/dL Estimated GFR > 60.0 (>60) mL/min BUN/Creatinine Ratio 28.8 H (6-22) Glucose 122 H (80-110) mg/dL Calcium 10.0 (8.4-10.2) mg/dL Total Bilirubin 0.5 (0.2-1.3) mg/dL AST 35 (14-36) IU/L ALT 22 (<35) IU/L Alkaline Phosphatase 55 (38-126) U/L Total Creatine Kinase 59 (30-135) U/L CK-MB (CK-2) TNP CK-MB (CK-2) Rel Index TNP Troponin I < 0.012 (0.01-0.034) ng/mL Total Protein 7.6 (6.3-8.2) g/dL Albumin 4.5 (3.5-5.0) g/dL Globulin 3.1 (1.7-4.1) g/dL Albumin/Globulin Ratio 1.5 (1.0-2.8) Lipase 148 (23-300) U/L SARS-CoV-2 (PCR) (Negative) 05/08/21 Range/Units 23:57 WBC (4.5-11.0) X10^3/uL RBC (4.0-5.2) X10^6/uL Hgb (12.0-16.0) g/dL Hct (36-46) % MCV (80-100) fL MCH (26-34) PG MCHC (30-36) % RDW (11.6-14.8) % Plt Count (150-400) X10^3/uL Neut % (Auto) (50-75) % Lymph % (Auto) (25-40) % Childress % (Auto) (3-14) % Eos % (Auto) (2-4) % Baso % (Auto) (0-2) % Neut # (Auto) (8245-2241) /uL Lymph # (Auto) (1783-6330) /uL Childress # (Auto) (0-900) /uL Eos # (Auto) (0-450) /uL Baso # (Auto) (0-100) /uL PT (10.1-12.7) SECONDS INR (0.9-1.3) APTT (26.4-36.2) SECONDS Sodium (137-145) mmol/L Potassium (3.4-5.1) mmol/L Chloride (98-107) mmol/L Carbon Dioxide (22-32) mmol/L BUN (7-17) mg/dL Creatinine (0.52-1.04) mg/dL Estimated GFR (>60) mL/min BUN/Creatinine Ratio (6-22) Glucose (80-110) mg/dL Calcium (8.4-10.2) mg/dL Total Bilirubin (0.2-1.3) mg/dL AST (14-36) IU/L ALT (<35) IU/L Alkaline Phosphatase (38-126) U/L Total Creatine Kinase (30-135) U/L CK-MB (CK-2) CK-MB (CK-2) Rel Index Troponin I (0.01-0.034) ng/mL Total Protein (6.3-8.2) g/dL Albumin (3.5-5.0) g/dL Globulin (1.7-4.1) g/dL Albumin/Globulin Ratio (1.0-2.8) Lipase (23-300) U/L SARS-CoV-2 (PCR) Negative (Negative) Point of Care Testing Test Results Not applicable Imaging Data Chest x-ray: Radiologist's Impresson: [address] [id number] ReportSigned Patient: Darline Wright MMR#: [id number]: 1950cct:[id number]/Sex: 71 / FDate of Service: 05/08/21Loc: EDAccession Number: [id number] Procedure: XR chest 1V Ordering Provider: Rudi Ernandez D.O. PROCEDURE: XR CHEST 1V INDICATIONS: chest pain TECHNIQUE: One view of the chest was acquired. COMPARISON: [facility], , XR CHEST 1V, 03/26/2021, 14:13. FINDINGS: Surgical changes and devices: None. Lungs and pleura: Lungs are clear. No pleural effusions or pneumothorax. Mediastinum: Mediastinal contours appear normal. Heart size is normal. Bones and chest wall: No suspicious bony lesions. Overlying soft tissues appear unremarkable. IMPRESSION: No acute cardiopulmonary abnormality. Dictated by: Dom Myers M.D. on 05/08/2021 at 23:24 Approved by: Dom Myers M.D. on 05/08/2021 at 23:25 ECG Data Attestation: I personally reviewed and interpreted this ECG as follows: Interpretation: Atrial fibrillation Ventricular rate [address] T wave changes Post cardioversion EKG Sinus rhythm Ventricular rate 76 Sinus arrhythmia Normal QRS Normal QTC Nonspecific ST T wave changes MDM Narrative Medical decision making narrative: Patient is AFib with RVR. Has a history of AFib. His anticoagulated for greater than 1 month. Symptoms started earlier this evening. Discuss risks and benefits of rate control versus rhythm control. There was an attempted cardioversion in the past but was unsuccessful. She would like to try cardioversion again despite this. She was sedated without issues. Cardioversion successful with 1 attempt. Will have her continue to take all of her medications. She is going to increase her metoprolol to 25 mg in the morning and 12.5 mg in the evening. She already has an appointment with her veterinary technologist scheduled for next week. Will contact her primary doctor for follow-up. Was given return precautions and follow-up instructions. She expressed understanding and agreement. Discharge Plan Departure Patient Disposition: Home Clinical Impression: Atrial fibrillation status post cardioversion Instructions: DI for Cardioversion Activity Restrictions/Additional Instructions: I do recommend that you increase your metoprolol to 25 mg in the morning and 12.5 mg at night. Continue to take the rest of her medications as directed. Contact your primary doctor tomorrow for follow-up. Return to the emergency department for any new or worsening symptoms Prescriptions: No Action Eliquis 5 mg tablet 5 mg PO BID RF: 0 metoprolol succinate 25 mg tablet extended release 24 hr 25 mg PO BID RF: 0 melatonin 1 mg Tablet 6 mg PO BEDTIME PRN (Reason: Sleep) RF: 0 magnesium citrate 100 mg Capsule 400 mg PO QID RF: 0 levothyroxine 75 mcg tablet 75 mcg PO DAILY Qty: 30 RF: 0
[2021-05-08 23:33] LABS: INR 1.3 (0.9-1.3); Prothrombin Time 14.3 SECONDS (10.1-12.7)
[2021-05-08 23:35] LABS: PTT Partial Thromboplastin Tim 37 SECONDS (26.4-36.2)
[2021-05-08 23:41] LABS: Alanine Aminotransferase 22 IU/L (<35); Albumin 4.5 g/dL (3.5-5.0); Albumin Globulin Ratio 1.5 (1.0-2.8); Alkaline Phosphatase 55 U/L (38-126); Aspartate Aminotransferase 35 IU/L (14-36); BUN Creatinine Ratio 28.8 (6-22); Bilirubin Total 0.5 mg/dL (0.2-1.3); Blood Urea Nitrogen 21 mg/dL (7-17); Carbon Dioxide 29 mmol/L (22-32); Chloride 104 mmol/L (98-107); Creatine Kinase 59 U/L (30-135); Estimated Glomerular Filt Rate > 60.0 mL/min (>60); Globulin 3.1 g/dL (1.7-4.1); Glucose 122 mg/dL (80-110); HEMOLYSIS 15 (0-50); Lipase 148 U/L (23-300); Potassium 3.6 mmol/L (3.4-5.1); Sodium 141 mmol/L (137-145); Total Protein 7.6 g/dL (6.3-8.2)
[2021-05-08 23:51] LABS: Troponin I < 0.012 ng/mL (0.01-0.034)
[2021-05-09] VITALS (11 sets, daily range): BP systolic 118–153; BP diastolic 65–96; PULSE 76–154; RESP 9–22; O2SAT 95–100
--- NOTE | 2021-05-09 00:13 | PC.NURSE ---
Oleg the DCR spoke with her and stated to DR Ernandez that he is not going to detain her.
[2021-05-09 00:18] LABS: COVID19 -Nasal RAPID Negative (Negative)
[2021-05-09] MEDS: fentaNYL 100 MCG/2 ML INJ 12.5 MCG IV (00:35)
[2021-05-09] MEDS: propofoL 200 MG/20 ML VIAL 100 MG IV (00:40)
== END 2021-05-09 02:05 | disposition home or self-care (01) ==
PROVIDERS: Emergency Provider Emergency Medicine
DX: I48.0 Paroxysmal atrial fibrillation (principal); Z79.01 Long term (current) use of anticoagulants; Z20.822 Contact with and (suspected) exposure to COVID-19
CPT/HCPCS: 36415; 71045; 80053; 82550; 83690; 84484; 85025; 85610; 85730; 87635; 92960; 93005; 96374; 96375; 99152; 99285; 99291; C9803; J2704; J3010

== ENCOUNTER 2021-06-09 20:58 | Emergency (ER) | payer OTHER, SELFPAY ==
[2021-03-26 18:48] VITALS: BMI 24.8
[2021-06-09] VITALS (23 sets, daily range): BP systolic 117–139; BP diastolic 68–93; PULSE 76–152; RESP 13–37; TEMP 36.5; O2SAT 94–100; BMI 25.3
--- NOTE | 2021-06-09 21:03 | ED_ITS ---
HPI - Arrhythmia/Palpitations General Chief Complaint: Arrhythmia/Palpitations Stated Complaint: afib x1 hour Time Seen by Provider: 06/09/21 21:02 History of Present Illness HPI narrative: 71F non smoker with history of paroxysmal AFib on Eliquis presents with a chief complaint of palpitations and shortness of breath and been present for the past few hours. She's having chest heaviness and shortness of breath. She has been on eliquis for over one month and denies missing any doses. She's been cardioverted in the past. She denies any medication or dietary change. She states this st arted abruptly a few hours ago. She is under the care of cardiology at the [facility]. Related Data Home Medications Medication Instructions Recorded Confirmed melatonin 1 mg tablet 6 mg PO BEDTIME PRN 03/08/20 05/11/21 magnesium citrate 100 mg capsule 400 mg PO QID 03/26/21 05/11/21 apixaban 5 mg tablet (Eliquis) 5 mg PO BID 05/02/21 05/11/21 metoprolol succinate 25 mg 25 mg PO BID 05/02/21 05/11/21 tablet,extended release 24 hr Previous Rx's Medication Instructions Recorded levothyroxine 75 mcg tablet 75 mcg PO DAILY #30 tab 03/28/21 hydroxyzine HCl 25 mg tablet 25 mg PO BID PRN #10 tab 05/11/21 hydroxyzine HCl 25 mg tablet 25 mg PO BID PRN #10 tab 06/09/21 Allergies Allergy/AdvReac Type Severity Reaction Status Date / Time No Known Drug Allergies Allergy Verified 05/11/21 09:59 Review of Systems Review of Systems Narrative: GENERAL: Denies chills, fatigue, malaise, fever, sweats. HEENT: Denies sinus pain, ear pain, sore throat, difficulty swallowing, dizziness. RESPIRATORY: See HPI CARDIOVASCULAR: see HPI GASTROINTESTINAL: Denies nausea, vomiting, abdominal pain, diarrhea, constipation, melena. : Denies dysuria, frequency, incontinence, hematuria, urinary retention. MUSCULOSKELETAL: denies weakness, joint pain, or bony pain SKIN: Denies rash, skin lesions, or other NEUROLOGIC: Denies weakness, headache, numbness, change in speech, confusion, seizures, incoordination. PSYCHIATRIC: No concerning psychosocial issues. 12 point review of systems is negative except for those stated above Patient History Medical History Anxiety Autism Chicken pox History of diverticulitis History of vaginal delivery Hypertension (~2009) Hypothyroidism (~2015) Tinnitus UTI (urinary tract infection) Surgical History Anesthesia History of surgery History of tonsillectomy (~1960) Family History Father Stroke Grandfather Heart disease Mother Stroke Grandfather Heart disease Grandmother Heart disease Social History household members: spouse Smoking Status: Never smoker alcohol intake: former Smoking Status: Never smoker Substance Use Type: does not use Exam Narrative Exam Narrative: GENERAL: [71] year old patient appears stated age. Well-developed patient, in mild distress. HEAD: Atraumatic. Normocephalic. EYES: Pupils equal round and reactive. Extraocular motions intact. No scleral icterus. No injection or drainage. ENT: Nose without bleeding, purulent drainage. Throat without erythema, tonsillar hypertrophy or exudate. Airway patent. NECK: Trachea midline. Non tender CARDIOVASCULAR: Tachycardic and irregular rhythm without murmurs, gallops, or rubs. RESPIRATORY: Clear to auscultation. Breath sounds equal bilaterally. No wheezes, rales, or rhonchi. GASTROINTESTINAL: Abdomen soft, non-tender, nondistended. EXTREMITIES: No edema or joint tenderness. BACK: Nontender without deformity or crepitance. No flank tenderness. NEURO: AOx3. SKIN: No rash or erythema of visible areas Initial Vital Signs Initial Vital Signs: Vital Signs Temperature 97.7 F 06/09/21 21:10 Pulse Rate 144 H 06/09/21 21:10 Respiratory Rate 18 06/09/21 21:10 Blood Pressure 129/91 H 06/09/21 21:10 Pulse Oximetry 99 06/09/21 21:10 Procedures Cardioversion Consent Signed: Yes Indication: rapid symptomatic atrial fib Stability: Unstable Number of attempts (shocks): 1 Joules used: 120 Cardiac rhythm post-cardioversion: stable Procedural Sedation Consent signed: Yes Time out performed: Yes Indication: cardioversion ASA Class: II Mallampati Airway Classification: Class II Preparation: monitor and storage bin tender applied, pulse oximeter, capnometry used, supplemental O2 applied, suction/airway equipment at bedside and IV secured IV Propofol dose (mg): 70 Intraservice time/total sedation time (min): 12 ED Sedation Level: Moderate (Concious) Patient Tolerated Procedure: Well Complications: none Course Orders Ordered: Discontinued Medications Sodium Chloride (Normal Saline 0.9%) 1,000 mls @ 125 mls/hr IV CONT DOMINIQUE Last Infusion: 06/09/21 22:58 Dose: 0 mls/hr Documented by: Admin: 06/09/21 22:00 Dose: 125 mls/hr Documented by: GALLO Propofol (Propofol 200 Mg/20 Ml Vial) 70 mg IV NOW ONE Stop: 06/09/21 21:04 Last Admin: 06/09/21 22:06 Dose: 50 mg Documented by: GALLO MDM - Arrhythmia/Palpitations Lab Data Result diagrams: 06/09/21 21:20 06/09/21 21:20 Labs: Lab Results 06/09/21 06/09/21 06/09/21 Range/Units 21:15 21:20 21:20 WBC 9.3 (4.5-11.0) X10^3/uL RBC 4.97 (4.0-5.2) X10^6/uL Hgb 14.9 (12.0-16.0) g/dL Hct 43.8 (36-46) % MCV 88.1 (80-100) fL MCH 30.0 (26-34) PG MCHC 34.1 (30-36) % RDW 13.9 (11.6-14.8) % Plt Count 254 (150-400) X10^3/uL Neut % (Auto) 56.5 (50-75) % Lymph % (Auto) 33.6 (25-40) % Tripp % (Auto) 8.5 (3-14) % Eos % (Auto) 0.9 L (2-4) % Baso % (Auto) 0.5 (0-2) % Neut # (Auto) 5300 (7728-8629) /uL Lymph # (Auto) 3100 (6491-2175) /uL Tripp # (Auto) 800 (0-900) /uL Eos # (Auto) 100 (0-450) /uL Baso # (Auto) 0 (0-100) /uL Sodium 142 (137-145) mmol/L Potassium 3.9 (3.4-5.1) mmol/L Chloride 103 (98-107) mmol/L Carbon Dioxide 32 (22-32) mmol/L BUN 17 (7-17) mg/dL Creatinine 0.73 (0.52-1.04) mg/dL Estimated GFR > 60.0 (>60) mL/min BUN/Creatinine Ratio 23.3 H (6-22) Glucose 114 H (80-110) mg/dL Calcium 10.2 (8.4-10.2) mg/dL Magnesium 2.5 H (1.6-2.3) mg/dL Total Bilirubin 0.5 (0.2-1.3) mg/dL AST 34 (14-36) IU/L ALT 74 H (<35) IU/L Alkaline Phosphatase 59 (38-126) U/L Total Creatine Kinase 60 (30-135) U/L CK-MB (CK-2) TNP CK-MB (CK-2) Rel Index TNP Troponin I < 0.012 (0.01-0.034) ng/mL NT-Pro-B Natriuret Pep 91 (<125) pg/mL Total Protein 7.5 (6.3-8.2) g/dL Albumin 4.5 (3.5-5.0) g/dL Globulin 3.0 (1.7-4.1) g/dL Albumin/Globulin Ratio 1.5 (1.0-2.8) SARS-CoV-2 (PCR) Negative (Negative) Point of Care Testing Test Results Not applicable Discharge Plan Departure Patient Disposition: Home Clinical Impression: Atrial fibrillation with rapid ventricular response Instructions: DI for Atrial Fibrillation Activity Restrictions/Additional Instructions: *You have been diagnosed with [rapid atrial fibrillation, status post cardioversion *What to do: *Please increase your morning dose of Metoprolol to 37.5mg and keep the night dose the same. Otherwise, please continue to take your regular medications as directed. [ x] New medication prescriptions sent to your pharmacy: [facility] ] [ ] New medication written as a paper prescription [ ] No new medications given *Please follow up with your primary care provider in 2-3 days, call for an appointment. Let them know you were seen in the Emergency Department and that we ask that you be seen in follow up. We will electronically transmit a record of today's note if your PCP is in our system *If you do not have a primary care provider please contact the [facility] Resource line at [phone]. They will ask some questions about your medical history and help get you set up with a doctor in the community. *Return to Emergency Department if you should have any new, worsening or concerning symptoms, such as [fever greater than 101 F, shaking chills, worsening pain, persistent vomiting or other bothersome symptoms] Prescriptions: New hydroxyzine HCl 25 mg tablet 25 mg PO BID PRN (Reason: anxiety) Qty: 10 0RF No Action Eliquis 5 mg tablet 5 mg PO BID 0RF metoprolol succinate 25 mg tablet extended release 24 hr 25 mg PO BID 0RF hydroxyzine HCl 25 mg tablet 25 mg PO BID PRN (Reason: anxiety) Qty: 10 0RF melatonin 1 mg Tablet 6 mg PO BEDTIME PRN (Reason: Sleep) 0RF magnesium citrate 100 mg Capsule 400 mg PO QID 0RF levothyroxine 75 mcg tablet 75 mcg PO DAILY Qty: 30 0RF Referrals: Miscellaneous,Doctor, MD [Primary Care Provider] -
[2021-06-09 21:32] LABS: Add Manual Diff / Slide Review NO; Basophils Absolute Auto 0 /uL (0-100); Basophils Percent Auto 0.5 % (0-2); Eosinophils Absolute Auto 100 /uL (0-450); Eosinophils Percent Auto 0.9 % (2-4); Hematocrit 43.8 % (36-46); Hemoglobin 14.9 g/dL (12.0-16.0); Lymphocytes Absolute Auto 3100 /uL (1100-4500); Lymphocytes Percent Auto 33.6 % (25-40); Mean Corpuscular HGB Conc 34.1 % (30-36); Mean Corpuscular Volume 88.1 fL (80-100); Monocytes Absolute Auto 800 /uL (0-900); Monocytes Percent Auto 8.5 % (3-14); Neutrophils Absolute Auto 5300 /uL (1500-7000); Neutrophils Percent Auto 56.5 % (50-75); Platelet Count 254 X10^3/uL (150-400); Red Blood Cell Count 4.97 X10^6/uL (4.0-5.2); Red Cell Distribution Width 13.9 % (11.6-14.8); White Blood Cell Count 9.3 X10^3/uL (4.5-11.0)
[2021-06-09 21:37] LABS: COVID19 -Nasal RAPID Negative (Negative)
[2021-06-09 21:43] LABS: Alanine Aminotransferase 74 IU/L (<35); Albumin 4.5 g/dL (3.5-5.0); Albumin Globulin Ratio 1.5 (1.0-2.8); Alkaline Phosphatase 59 U/L (38-126); Aspartate Aminotransferase 34 IU/L (14-36); BUN Creatinine Ratio 23.3 (6-22); Bilirubin Total 0.5 mg/dL (0.2-1.3); Blood Urea Nitrogen 17 mg/dL (7-17); Calcium 10.2 mg/dL (8.4-10.2); Carbon Dioxide 32 mmol/L (22-32); Chloride 103 mmol/L (98-107); Creatine Kinase 60 U/L (30-135); Estimated Glomerular Filt Rate > 60.0 mL/min (>60); Glucose 114 mg/dL (80-110); HEMOLYSIS < 15 (0-50); Magnesium 2.5 mg/dL (1.6-2.3); Potassium 3.9 mmol/L (3.4-5.1); Sodium 142 mmol/L (137-145); Total Protein 7.5 g/dL (6.3-8.2)
[2021-06-09 21:54] LABS: NT-proBNP (BNP-Adult 18+) 91 pg/mL (<125); Troponin I < 0.012 ng/mL (0.01-0.034)
[2021-06-09] MEDS: SODIUM CHLORIDE 0.9% 1,000 ML 125 ML IV (22:00)
[2021-06-09] MEDS: propofoL 200 MG/20 ML VIAL 70 MG IV (22:06)
--- NOTE | 2021-06-09 22:36 | PC.NURSE ---
Pt tolerated cardioversion procedure well. Meds administered at 2206, cardiovert/shock at 2208, pt drowsy/talking to staff at 2210. Wide awake, alert/oriented at 2215. Vitals remained stable, no complications.
--- NOTE | 2021-06-10 00:03 | RT ---
06/09/210 Assisted with concious sedation for cardioversion. Patietn placed on ETCO2 monitor and SPO2 monitor. Patient remained on Ra with SPO2 running 94-98%. ETCO2 running 22-34. Patietn awake and appropriate at end of sedation.
== END 2021-06-09 22:59 | disposition home or self-care (01) ==
PROVIDERS: Emergency Provider Emergency Medicine
DX: I48.91 Unspecified atrial fibrillation (principal); Z20.822 Contact with and (suspected) exposure to COVID-19
CPT/HCPCS: 36415; 80053; 82550; 83735; 83880; 84484; 85025; 87635; 92960; 93005; 96360; 99152; 99285; C9803; J2704

== ENCOUNTER → 2021-07-22 12:04 | Outpatient (CLI) | payer OTHER, SELFPAY ==
[2021-03-26 18:48] VITALS: BMI 24.8
== END ==
PROVIDERS: Referring Provider Nurse Practitioner Critical Care Medicine; Visit Provider Nurse Practitioner Critical Care Medicine
DX: N39.0 Urinary tract infection, site not specified (principal)
CPT/HCPCS: 87077; 87086; 87186

== ENCOUNTER → 2021-08-11 09:31 | Outpatient (CLI) | payer OTHER, SELFPAY ==
[2021-03-26 18:48] VITALS: BMI 24.8
== END ==
PROVIDERS: Visit Provider Physician Assistant
DX: R30.0 Dysuria (principal)
CPT/HCPCS: 87077; 87086; 87186

== ENCOUNTER → 2021-09-06 08:27 | Outpatient (CLI) | payer OTHER, SELFPAY ==
[2021-03-26 18:48] VITALS: BMI 24.8
== END ==
PROVIDERS: Visit Provider Physician Assistant
DX: R30.0 Dysuria (principal)
CPT/HCPCS: 87077; 87086; 87185; 87186

== ENCOUNTER → 2021-09-23 09:05 | Outpatient (CLI) | payer OTHER, SELFPAY ==
[2021-03-26 18:48] VITALS: BMI 24.8
== END ==
PROVIDERS: Visit Provider Physician Assistant
DX: R30.0 Dysuria (principal)
CPT/HCPCS: 87086

== ENCOUNTER → 2021-09-24 11:29 | Outpatient (CLI) | payer OTHER, SELFPAY ==
[2021-03-26 18:48] VITALS: BMI 24.8
== END ==
PROVIDERS: Visit Provider Student in an Organized Health Care Education/Training Program
DX: R30.0 Dysuria (principal)
CPT/HCPCS: 87086

== ENCOUNTER → 2021-10-11 10:40 | Outpatient (CLI) | payer OTHER, SELFPAY ==
[2021-03-26 18:48] VITALS: BMI 24.8
[2021-10-11 12:15] LABS: Bacteria Urine Moderate (10-30); RBC Urine 1-5/HPF (0-5/HPF); Squamous Epithelial Cell Urine 0-1 /HPF (0-5/HPF); WBC Urine 10-30/HPF (0-5/HPF)
== END ==
PROVIDERS: Visit Provider Nurse Practitioner Critical Care Medicine
DX: N30.00 Acute cystitis without hematuria (principal); R30.0 Dysuria
CPT/HCPCS: 81015; 87077; 87086; 87186

== ENCOUNTER → 2021-10-21 10:26 | Outpatient (CLI) | payer OTHER, SELFPAY ==
[2021-03-26 18:48] VITALS: BMI 24.8
== END ==
PROVIDERS: Referring Provider Physician Assistant; Visit Provider Physician Assistant
DX: R30.0 Dysuria (principal)
CPT/HCPCS: 87086

== ENCOUNTER → 2021-10-24 10:01 | Outpatient (CLI) | payer OTHER, SELFPAY ==
[2021-03-26 18:48] VITALS: BMI 24.8
== END ==
PROVIDERS: Visit Provider Physician Assistant
DX: N39.0 Urinary tract infection, site not specified (principal)
CPT/HCPCS: 87086

== ENCOUNTER 2021-12-03 18:30 | Emergency (ER) | payer OTHER, SELFPAY ==
[2021-03-26 18:48] VITALS: BMI 24.8
[2021-12-03 19:03] VITALS: BP 189/93; PULSE 71; RESP 18; TEMP 36.5; O2SAT 100; BMI 25.7
[2021-12-03 19:28] LABS: Add Manual Diff / Slide Review NO; Basophils Absolute Auto 100 /uL (0-100); Basophils Percent Auto 0.7 % (0-2); Eosinophils Absolute Auto 100 /uL (0-450); Eosinophils Percent Auto 1.1 % (2-4); Hemoglobin 15.1 g/dL (12.0-16.0); Lymphocytes Absolute Auto 3200 /uL (1100-4500); Lymphocytes Percent Auto 43.6 % (25-40); Mean Corpuscular HGB Conc 34.2 % (30-36); Mean Corpuscular Hemoglobin 30.2 PG (26-34); Mean Corpuscular Volume 88.2 fL (80-100); Monocytes Absolute Auto 500 /uL (0-900); Monocytes Percent Auto 6.7 % (3-14); Neutrophils Absolute Auto 3500 /uL (1500-7000); Neutrophils Percent Auto 47.9 % (50-75); Platelet Count 266 X10^3/uL (150-400); Red Blood Cell Count 4.99 X10^6/uL (4.0-5.2); Red Cell Distribution Width 14.1 % (11.6-14.8); White Blood Cell Count 7.4 X10^3/uL (4.5-11.0)
[2021-12-03 19:42] LABS: Alanine Aminotransferase 25 IU/L (<35); Albumin 4.9 g/dL (3.5-5.0); Albumin Globulin Ratio 1.6 (1.0-2.8); Alkaline Phosphatase 52 U/L (38-126); Aspartate Aminotransferase 32 IU/L (14-36); BUN Creatinine Ratio 12.3 (6-22); Blood Urea Nitrogen 10 mg/dL (7-17); Calcium 9.6 mg/dL (8.4-10.2); Carbon Dioxide 28 mmol/L (22-32); Chloride 103 mmol/L (98-107); Estimated Glomerular Filt Rate > 60 mL/min (>60); Globulin 3.1 g/dL (1.7-4.1); Glucose 110 mg/dL (80-110); HEMOLYSIS < 15 (0-50); Lipase 99 U/L (23-300); Potassium 3.6 mmol/L (3.4-5.1); Sodium 140 mmol/L (137-145)
--- NOTE | 2021-12-03 21:57 | ED.ABDPAIN ---
HPI - Abdominal Pain General Chief Complaint: Abdominal Pain Stated Complaint: LEFT ABD PAIN Time Seen by Provider: 12/03/21 21:22 Source: patient Mode of arrival: Ambulatory History of Present Illness HPI narrative: 71-year-old female nonsmoker with history of diverticulitis presents with a chief complaint of an episode of left-sided abdominal pain earlier in the day that has largely resolved. She denies any fever chills. She has no nausea or vomiting. She denies chest pain or shortness of breath, cough or other respiratory complaint. She denies any dysuria, frequency or urgency. She does have an extensive GI history and is actually in the process of beginning the bowel prep for a colonoscopy in 2 days. When pain was present she denied any obvious provocation, palliation or radiation. Related Data Home Medications Medication Instructions Recorded Confirmed melatonin 1 mg tablet 6 mg PO BEDTIME PRN 03/08/20 12/03/21 magnesium citrate 100 mg capsule 400 mg PO QID 03/26/21 12/03/21 apixaban 5 mg tablet (Eliquis) 5 mg PO BID 05/02/21 12/03/21 flecainide 50 mg tablet 50 mg PO Q12H 07/22/21 12/03/21 Previous Rx's Medication Instructions Recorded levothyroxine 75 mcg tablet 75 mcg PO DAILY #30 tab 03/28/21 hydroxyzine HCl 25 mg tablet 25 mg PO BID PRN #10 tab 05/11/21 hydroxyzine HCl 25 mg tablet 25 mg PO BID PRN #10 tab 06/09/21 phenazopyridine 100 mg tablet 100 mg PO TID PRN #6 tab 09/06/21 (Pyridium) Allergies Allergy/AdvReac Type Severity Reaction Status Date / Time No Known Drug Allergies Allergy Verified 12/03/21 18:00 Patient History Medical History Anxiety Autism Chicken pox History of diverticulitis History of vaginal delivery Hypertension (~2009) Hypothyroidism (~2015) Tinnitus UTI (urinary tract infection) Surgical History Anesthesia History of surgery History of tonsillectomy (~1960) Family History Father Stroke Grandfather Heart disease Mother Stroke Grandfather Heart disease Grandmother Heart disease Social History household members: spouse Smoking Status: Never smoker alcohol intake: former Smoking Status: Never smoker Substance Use Type: does not use Exam Narrative Exam Narrative: GENERAL: [71] year old patient appears stated age. Well-developed patient, in mild distress. HEAD: Atraumatic. Normocephalic. EYES: Pupils equal round and reactive. Extraocular motions intact. No scleral icterus. No injection or drainage. ENT: Nose without bleeding, purulent drainage. Throat without erythema, tonsillar hypertrophy or exudate. Airway patent. NECK: Trachea midline. Non tender CARDIOVASCULAR: Regular rate and rhythm without murmurs, gallops, or rubs. RESPIRATORY: Clear to auscultation. Breath sounds equal bilaterally. No wheezes, rales, or rhonchi. GASTROINTESTINAL: Abdomen soft, non-tender, nondistended. EXTREMITIES: No edema or joint tenderness. BACK: Nontender without deformity or crepitance. No flank tenderness. NEURO: AOx3. SKIN: No rash or erythema of visible areas Initial Vital Signs Initial Vital Signs: Vital Signs Temperature 97.7 F 12/03/21 19:03 Pulse Rate 71 12/03/21 19:03 Respiratory Rate 18 12/03/21 19:03 Blood Pressure 189/93 H 12/03/21 19:03 Pulse Oximetry 100 12/03/21 19:03 Course Orders Ordered: ED Orders 12/03/21 19:07 EKG-12 Lead Stat 12/03/21 19:20 Complete Blood Count AUTO DIFF Stat Comprehensive Metabolic Panel Stat Lipase Stat 12/03/21 22:10 CT abdomen pelvis w con Stat Vital Signs Vital signs: Vital Signs - 8 hr 12/03/21 19:03 Temperature 97.7 F Pulse Rate 71 Respiratory Rate 18 Blood Pressure 189/93 H Pulse Oximetry 100 MDM - Abdominal Pain Lab Data Result diagrams: 12/03/21 19:20 12/03/21 19:20 Labs: Lab Results 12/03/21 12/03/21 Range/Units 19:20 19:20 WBC 7.4 (4.5-11.0) X10^3/uL RBC 4.99 (4.0-5.2) X10^6/uL Hgb 15.1 (12.0-16.0) g/dL Hct 44.0 (36-46) % MCV 88.2 (80-100) fL MCH 30.2 (26-34) PG MCHC 34.2 (30-36) % RDW 14.1 (11.6-14.8) % Plt Count 266 (150-400) X10^3/uL Neut % (Auto) 47.9 L (50-75) % Lymph % (Auto) 43.6 H (25-40) % Cook % (Auto) 6.7 (3-14) % Eos % (Auto) 1.1 L (2-4) % Baso % (Auto) 0.7 (0-2) % Neut # (Auto) 3500 (3573-6857) /uL Lymph # (Auto) 3200 (3074-4868) /uL Cook # (Auto) 500 (0-900) /uL Eos # (Auto) 100 (0-450) /uL Baso # (Auto) 100 (0-100) /uL Sodium 140 (137-145) mmol/L Potassium 3.6 (3.4-5.1) mmol/L Chloride 103 (98-107) mmol/L Carbon Dioxide 28 (22-32) mmol/L BUN 10 (7-17) mg/dL Creatinine 0.81 (0.52-1.04) mg/dL Estimated GFR > 60 (>60) mL/min BUN/Creatinine Ratio 12.3 (6-22) Glucose 110 (80-110) mg/dL Calcium 9.6 (8.4-10.2) mg/dL Total Bilirubin 1.0 (0.2-1.3) mg/dL AST 32 (14-36) IU/L ALT 25 (<35) IU/L Alkaline Phosphatase 52 (38-126) U/L Total Protein 8.0 (6.3-8.2) g/dL Albumin 4.9 (3.5-5.0) g/dL Globulin 3.1 (1.7-4.1) g/dL Albumin/Globulin Ratio 1.6 (1.0-2.8) Lipase 99 (23-300) U/L Point of care testing: Point of Care Testing Glucose POC 109 Urine Dip Bedside Urine Glucose Negative Bedside Urine Bilirubin - Negative Bedside Urine Ketone - Negative Urine Specific [place] 1.010 Bedside Urine Occult Blood - Negative Bedside Urine pH 6.0 Bedside Urine Protein - Negative Bedside Urine Urobilinogen - Negative Bedside Urine Nitrite - Negative Bedside Urine Leukocytes - Negative Esterase Imaging Data CT scan - abdomen/pelvis: Radiologist's Impression: Launch?[address] [address] [address] Scan Report Signed Patient: Darline Wright MR#: [id number] : 1950 Acct:[id number] Age/Sex: 71 / F Date of Service: 12/03/21 Loc: ED Accession Number: [id number] ?? Procedure: CT abdomen pelvis w con Ordering Provider: Rico Murcia D.O. PROCEDURE:? CT ABDOMEN PELVIS W CON ? INDICATIONS:? severe LLQ pain, sent by GI ? TECHNIQUE:? After the administration of IV contrast, axial sections were acquired from the lung bases to the pubic symphysis.? Coronal and sagittal reformats were performed.? For radiation dose reduction, the following was used:? automated exposure control, adjustment of mA and/or kV according to patient size. ? COMPARISON:? Outside Facility, , [facility], 04/11/2020, 14:00. ? FINDINGS:? Image quality:? Excellent.? ? Lung bases:? There is a small subpleural nodule in the right lower lobe measuring up to 0.4 cm which appears unchanged from the prior study.? Mild linear scarring is redemonstrated bilaterally.? ? Heart:? Heart is normal in size.? There is a small hiatal hernia. ? ? ABDOMEN: Liver:? There is a small indistinct oval hypodensity in the inferior right hepatic lobe measuring up to 0.9 cm on series 2, image 26 which appears similar to the prior study.? The finding is too small to characterize but likely represents a cyst. Gallbladder:? Within normal limits without calcified gallstones.? ? Biliary ducts:? No biliary ductal dilatation.? ? Pancreas:? Unremarkable.? ? Spleen:? Normal in size.? ? Adrenal Glands:? No adrenal nodules.? ? Kidneys and Ureters:? No hydronephrosis.? ? ? Stomach and Bowel:? Stomach and small bowel loops are normal in caliber and wall thickness.? The appendix is normal in appearance.? There is colonic diverticulosis without acute diverticulitis.? Mild segmental wall thickening is demonstrated in the sigmoid colon which may reflect a mild colitis.? Moderate colonic stool distention is demonstrated suggestive of constipation.? Peritoneum:? No abnormal intraperitoneal fluid.? No free air.? ? Ventral Wall: ? No hernia.? Abdominal Nodes:? No retroperitoneal or mesenteric adenopathy by size criteria.? Vessels:? Aorta and inferior vena cava are normal in size.? ? PELVIS: Pelvic Organs:? Unremarkable.? ? Bladder:? Normal wall thickness.? There is a focus of gas within the bladder.? ? Pelvic Nodes: No enlarged lymph nodes.? Miscellaneous: No inguinal hernias are seen. ? ? ? Bones:? Visualized osseous structures demonstrate no suspicious focal lesions. ? ? IMPRESSION:? ? 1. Mild segmental wall thickening in the sigmoid colon may reflect artifact from nondistention or mild colitis.? Recommend correlation clinically. ? 2. Colonic diverticulosis without acute diverticulitis. ? 3. Moderate colonic stool distention suggestive of constipation.? No evidence of small-bowel obstruction. ? 4. Small focus of gas within the bladder may represent sequelae of recent catheterization or infection from a gas-forming organism.? No associated bladder wall thickening.? ? ? Dictated by: Gildardo Arriola M.D. on 12/03/2021 at 23:27 ? ? Approved by: Gildardo Arriola M.D. on 12/03/2021 at 23:31 MDM Narrative Medical decision making narrative: Multiple etiologies for patient's symptoms considered include, but not limited to: [Bowel obstruction versus kidney stone versus diverticulitis versus other Patient's symptoms improved over duration of stay with above-stated therapies. History, physical exam, labs, imaging, and response to therapies have been reassuring. Findings and discharge diagnosis discussed with patient/family followed by verbalization of understanding Return precautions discussed with patient/family whom verbalize understanding. Pain has been well controlled and patient is tolerating oral hydration. Discharge Plan Departure Patient Disposition: Home Clinical Impression: Abdominal pain Instructions: DI for Abdominal Pain-Adult Activity Restrictions/Additional Instructions: *You have been diagnosed with [abdominal pain resolved. Your history and physical exam are very reassuring and labs are unremarkable. As we discussed however your CT scan does show some mild thickening of your sigmoid colon which may possibly reflect colitis. Given her lack of fever, current symptoms or elevated white blood cell count antibiotics are not indicated at this time *What to do: *Please continue to take your regular medications as directed. [ ] New medication prescriptions sent to your pharmacy: [ ] [ ] New medication written as a paper prescription [ ]x No new medications given *Please follow up with your primary care provider in 2-3 days, call for an appointment. Let them know you were seen in the Emergency Department and that we ask that you be seen in follow up. We will electronically transmit a record of today's note if your PCP is in our system *If you do not have a primary care provider please contact the [facility] Resource line at [phone]. They will ask some questions about your medical history and help get you set up with a doctor in the community. *Return to Emergency Department if you should have any new, worsening or concerning symptoms, such as [fever greater than 101 F, shaking chills, worsening pain, persistent vomiting or other bothersome symptoms] Prescriptions: No Action Eliquis 5 mg tablet 5 mg PO BID 0RF flecainide 50 mg tablet 50 mg PO Q12H 0RF hydroxyzine HCl 25 mg tablet 25 mg PO BID PRN (Reason: anxiety) Qty: 10 0RF phenazopyridine [Pyridium] 100 mg tablet 100 mg PO TID PRN (Reason: pain) Qty: 6 0RF melatonin 1 mg Tablet 6 mg PO BEDTIME PRN (Reason: Sleep) 0RF magnesium citrate 100 mg Capsule 400 mg PO QID 0RF levothyroxine 75 mcg tablet 75 mcg PO DAILY Qty: 30 0RF hydroxyzine HCl 25 mg tablet 25 mg PO BID PRN (Reason: anxiety) Qty: 10 0RF
--- NOTE | 2021-12-03 22:10 | DI.CT.S_ITS ---
PROCEDURE: CT ABDOMEN PELVIS W CON INDICATIONS: severe LLQ pain, sent by GI TECHNIQUE: After the administration of IV contrast, axial sections were acquired from the lung bases to the pubic symphysis. Coronal and sagittal reformats were performed. For radiation dose reduction, the following was used: automated exposure control, adjustment of mA and/or kV according to patient size. COMPARISON: Outside Facility, , CT [facility], 04/11/2020, 14:00. FINDINGS: Image quality: Excellent. Lung bases: There is a small subpleural nodule in the right lower lobe measuring up to 0.4 cm which appears unchanged from the prior study. Mild linear scarring is redemonstrated bilaterally. Heart: Heart is normal in size. There is a small hiatal hernia. ABDOMEN: Liver: There is a small indistinct oval hypodensity in the inferior right hepatic lobe measuring up to 0.9 cm on series 2, image 26 which appears similar to the prior study. The finding is too small to characterize but likely represents a cyst. Gallbladder: Within normal limits without calcified gallstones. Biliary ducts: No biliary ductal dilatation. Pancreas: Unremarkable. Spleen: Normal in size. Adrenal Glands: No adrenal nodules. Kidneys and Ureters: No hydronephrosis. Stomach and Bowel: Stomach and small bowel loops are normal in caliber and wall thickness. The appendix is normal in appearance. There is colonic diverticulosis without acute diverticulitis. Mild segmental wall thickening is demonstrated in the sigmoid colon which may reflect a mild colitis. Moderate colonic stool distention is demonstrated suggestive of constipation. Peritoneum: No abnormal intraperitoneal fluid. No free air. Ventral Wall: No hernia. Abdominal Nodes: No retroperitoneal or mesenteric adenopathy by size criteria. Vessels: Aorta and inferior vena cava are normal in size. PELVIS: Pelvic Organs: Unremarkable. Bladder: Normal wall thickness. There is a focus of gas within the bladder. Pelvic Nodes: No enlarged lymph nodes. Miscellaneous: No inguinal hernias are seen. Bones: Visualized osseous structures demonstrate no suspicious focal lesions. IMPRESSION: 1. Mild segmental wall thickening in the sigmoid colon may reflect artifact from nondistention or mild colitis. Recommend correlation clinically. 2. Colonic diverticulosis without acute diverticulitis. 3. Moderate colonic stool distention suggestive of constipation. No evidence of small-bowel obstruction. 4. Small focus of gas within the bladder may represent sequelae of recent catheterization or infection from a gas-forming organism. No associated bladder wall thickening. Dictated by: Gildardo Arriola M.D. on 12/03/2021 at 23:27 Approved by: Gildardo Arriola M.D. on 12/03/2021 at 23:31
== END 2021-12-04 00:09 | disposition home or self-care (01) ==
PROVIDERS: Emergency Provider Emergency Medicine
DX: R10.9 Unspecified abdominal pain (principal)
CPT/HCPCS: 36415; 74177; 80053; 81003; 82962; 83690; 85025; 99283; Q9967

== ENCOUNTER → 2022-01-03 10:00 | Outpatient (CLI) | payer OTHER, SELFPAY ==
[2021-03-26 18:48] VITALS: BMI 24.8
[2022-01-03 11:18] LABS: COVID19 -Nasal RAPID POSITIVE (Negative)
== END ==
PROVIDERS: Visit Provider Physician Assistant
DX: U07.1 COVID-19 (principal)
CPT/HCPCS: 87635

== ENCOUNTER → 2022-05-30 07:59 | Outpatient (CLI) | payer OTHER, SELFPAY ==
[2021-03-26 18:48] VITALS: BMI 24.8
== END ==
PROVIDERS: Visit Provider Nurse Practitioner Family
DX: N39.0 Urinary tract infection, site not specified (principal)
CPT/HCPCS: 87077; 87086; 87186